=== PATIENT | male | born 1960 | race Caucasian/White ===

== ENCOUNTER 2019-11-06 14:22 | Outpatient (CLI) | payer BC, SELFPAY ==
[2019-11-06 15:12] LABS: Basophils # 0.1 10^3/uL (0.0-0.1); Basophils % 0.9 %; Eosinophils # 0.3 10^3/uL (0.0-0.8); Eosinophils % 4.4 %; Hematocrit 44.4 % (42.0-52.0); Hemoglobin 14.5 g/dL (11.7-16.6); Lymphocytes # 2.2 10^3/uL (0.8-4.8); Lymphocytes % 32.9 %; Mean Corpuscular HGB Conc 32.7 g/dL (30.0-36.0); Mean Corpuscular Hemoglobin 28.2 pg (28.0-34.0); Mean Corpuscular Volume 86.4 fL (80-94); Mean Platelet Volume 11.4 fL (7.4-10.4); Monocytes # 0.6 10^3/uL (0.2-0.9); Neutrophils # 3.5 10^3/uL (1.8-7.7); Neutrophils % 52.5 %; Nucleated Red Blood Cells % 0 %; Platelet Count 235 10^3/cmm (130-400); Red Blood Count 5.14 10^6/uL (4.1-5.3); Red Cell Distribution Width 13.2 % (12.1-15.1); White Blood Count 6.8 10^3/uL (4.0-10.0)
[2019-11-06 15:27] LABS: Alanine Aminotransferase 33 U/L (0-41); Albumin Level 4.2 g/dL (3.5-5.2); Alkaline Phosphatase 100 IU/L (40-130); Anion Gap 14.6 (5-19); Aspartate Amino Transferase 22 U/L (0-40); Blood Urea Nitrogen 24 mg/dL (6-20); Calcium 9.7 mg/dL (8.5-10.5); Carbon Dioxide 28 mmol/L (22-29); Chloride 103 mmol/L (98-107); Globulin 3.1 g/dL (1.3-4.6); Glomerular Filtration Rate 56.5 mL/min (90-130); Glucose 100 mg/dL (65-115); Lactate Dehydrogenase 150 U/L (135-225); Potassium 3.6 mmol/L (3.5-5.1); Sodium 142 mmol/L (136-145); Total Bilirubin 0.6 mg/dL (0.15-1.2); Total Protein 7.3 g/dL (6.6-8.7)
--- NOTE | 2019-11-09 10:11 | ONC FU_ITS ---
Dr. Gonzalez Patient Follow-Up Note Patient: Italo Barrios Unit #: [id number]: [id number] Dicatated By: Babatunde Gonzalez M.D.Date of Visit:Nov 06, 2019 Onc Med Follow-up/Prog Note Chief Complaint: Chronic lymphocytic leukemia/small lymphocytic lymphoma. History of Present Illness: This is a 58 year-old man with CLL/small lymphocytic lymphoma. He had associated bulky lymphadenopathy at initial diagnosis in August 2017. He first became ill in May 2017 while traveling in [place]. The illness started with a red area in the middle of his forehead, suspected to been from an insect bite. He then developed severe swelling of his eyes which progressed down to involve his neck area, and with that the lymph nodes in his neck swelled. He was treated at 2 different hospitals. He was initially treated with antibiotic, but with no improvement. He was then given a couple doses of steroid and antihistamine, which did help. When he returned home, he started oral steroid therapy, and it continued to gradually improve. He has now been off steroids for about 2 months. In the meantime, his lymph nodes had continued to progressively enlarge. He had further evaluation with CT of the neck and chest on 08/23/2017. This showed innumerable, extensive bilateral lymphadenopathy throughout the neck, supraclavicular, and axillary regions as well as the mediastinum. Also noted were multiple enhancing parotid gland masses. The chest scan also showed extensive adenopathy in the upper abdomen including large confluent lymph node masses in the mesentery and retroperitoneum. The largest is in the mesentery measuring 11.8 x 10 cm. The largest retroperitoneal lymph node mass in the left periaortic area measured 6.1 x 2.9 cm. The spleen was moderately enlarged measuring 14.5 cm in length by 15.7 cm anterior-posterior. He was referred to Dr. Freedman, and he underwent left inguinal lymph node biopsy on 08/28/2017. Pathology showed a monotypic B-cell population which was phenotypically compatible with CLL/SLL. The cells were positive for CD19, CD20, CD5, and CD23. They were negative for CD10 and FMC7. I had seen him initially on 09/07/2017. His further evaluation included bone marrow aspiration/biopsy on 09/22/2017. The marrow showed packed cellularity at 100% with complete effacement by a lymphoid proliferation. Flow cytometry showed a monotypic B-cell population comprising 80-85% of the total cellularity. The B cells were positive for CD19, CD20 (dim to moderate), CD5, CD23, and surface kappa light chain restriction (dim restriction). The B cells were negative for CD10 and for FMC7. 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 His IGHV was found to be non-mutated by PCR sequencing. His CT abdomen/pelvis on 10/09/2017 showed extensive retroperitoneal, mesenteric, and inguinal lymphadenopathy. A conglomerate mesenteric lymphadenopathy measured 7 x 17 x 14 cm and retroperitoneal lymphadenopathy measured 8.5 x 3.8 x 17 cm. There was also bulky pelvic sidewall lymphadenopathy bilaterally and the spleen was noted to be enlarged, measuring 16.7 cm. In September 2017 he began treatment with ibrutinib 420 mg daily. He initially reported some side effects including fatigue and dryness of the eyes with mattering. He had also become mildly anemic. The side effects, though, were tolerable, and he was able to continue treatment at the full dosage. He appeared to have a very good response with complete resolution of peripheral lymphadenopathy. His other medical illnesses include hypertension, hyperlipidemia, GERD, and gout. He is a nonsmoker. INTERIM HISTORY: In January 2018 his treatment was put on hold due to multiple side effects including worsening ocular symptoms, mouth sores, and a follicular skin eruption. All of this started after his treatment was transitioned from 3 140 mg capsules to a single 420 mg tablet. The symptoms improved, and he was then able to restart treatment at 280 mg daily. On 04/27/2018 he was admitted to the hospital after presenting to the emergency room with pain in the right side of his neck associated with pleuritic chest pain and shortness of breath. During the course of his evaluation emergency room, he was noted to have an elevated serum lipase at 738/383, consistent with mild pancreatitis. A CT angiogram of the chest, abdomen, and pelvis showed no evidence of pulmonary embolism. There was evidence of bilateral lower lobe and to a lesser extent upper lobe subsegmental atelectasis. There was significant decrease in the bulk of extensive adenopathy in the chest area and in the abdomen/pelvis. There was improvement in the previous splenomegaly. 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 His symptoms improved with conservative management and he continued treatment with ibrutinib 280 mg daily. On 11/05/2108 he was confirmed to have influenza A. At that point he had been symptomatic long enough that Tamiflu was not indicated, and he was just managed symptomatically. He had a gradual recovery following that illness. He was able to continue treatment with ibrutinib at 280 mg daily. He had recently come in with some new skin lesions on the lower scalp and posterior neck on the left side. He was treated empirically with doxycycline. He is seen for a scheduled visit. He has been feeling good generally. He has noted some improvement in the skin lesions with the doxycycline, but they are not completely resolved. He noted complete resolution of some other scattered on his scalp which had previously bothered him. He has had some pain in his right shoulder area and tingling in his right arm which started as he was getting off his tractor, and he thinks he may have pulled a muscle. The pain is better now, he still has some tingling. He has good energy and activity tolerance. ECOG score is 0. Appetite is good. He has no fever or night sweats. He has no shortness of breath or cough. He has had occasional muscle spasms in the rib area on both sides. Has occasional acid reflux. He has some slight rectal bleeding, which he notices on the toilet tissue but not in the stool. He has been voiding a little more frequently. He tends to feel creaky when he first gets up in the morning, but he has no other joint or bone pain. He has had no other focal neurologic symptoms. Medications: Allopurinol 1 (100 mg) Tablet Oral daily, Imbruvica 2 (140 mg) Capsule Oral daily, Lisinopril-Hydrochlorothiazide 1 Tablet (of 20-25 mg) Oral daily, Pravastatin Sodium 1 (40 mg) Tablet Oral daily, Protonix 1 (40 mg) Tablet, enteric coated Oral daily Allergies: Penicillins Review of Systems: Constitutional - He has good energy and activity tolerance. Appetite is good. His weight is up a couple pounds. He does not have fever or night sweats. ECOG score is 0, ENMT - His sinus drainage is better. No mouth sores. No sore throat or difficulty swallowing, Hematologic/Lymphatic - No abnormal bruising, Respiratory - No shortness of breath. No cough. No pleuritic pain or hemoptysis, Cardiovascular - No angina pain. No palpitations, Gastrointestinal - No nausea or vomiting. No heartburn or acid reflux. No diarrhea or constipation. He continues to have some slight rectal bleeding intermittently. He sees it on the toilet tissue but not in the stool, Genitourinary (M) - No dysuria or hematuria. He has been voiding a little more frequently. No urgency or incontinence, Musculoskeletal - He has had a few muscle spasms in the rib cage on both sides. He feels creaky when he first gets up in the morning. He has no other joint or bone pain, Integumentary - He continues to have a mild skin eruption in the area of the posterior scalp and neck on the left side, Neurologic - No headaches. No dizziness. He recently has had tingling in the right arm, Psychiatric - No anxiety or depression. No insomnia. Vital Signs: Performed on Nov 06, 2019 15:35 Height - 70.00 in Weight - 207.6 lbs (HIGH) BSA - 2.12 sq.m BMI - 29.79 Temperature - 97.2 F (LOW) Pulse - 70 /min Respiration - 18 /min BP - 150/99 mm(hg) (HIGH) O2 Sat - 96 % Pain - 0 Physical Examination: Constitutional - He looks good generally, Eyes - Sclerae nonicteric. Conjunctivae clear, ENMT - There are no lesions noted in the oral cavity, Hematologic/Lymphatic - There is no cervical, clavicular, or axillary adenopathy noted, Respiratory - Lungs are clear with good air movement bilaterally, Cardiovascular - Heart rhythm is regular. There is no murmur, gallop, or rub noted, Abdomen - Soft. Liver and spleen are not enlarged. There is no abdominal mass or ascites noted. There is no inguinal adenopathy noted, Extremities - No edema, Integumentary - There is a residual cluster of skin lesions involving the posterior neck area and low occipital scalp area on the left side. They are slightly raised, erythematous, inflammatory appearing lesions. The overall appearance has improved. Several of the skin lesions on his scalp have resolved, Neurologic - No focal neurologic deficits noted. Lab/Imaging: Test performed on Nov 06, 2019 14:33 LDH (Total) 150 U/L Sodium 142 mmol/L Potassium 3.6 mmol/L Chloride 103 mmol/L CO2 28 mmol/L Anion Gap 14.6 BUN 24 mg/dL Creatinine 1.3 mg/dL Cr Clearance (Est) 81.49 mL/min eGFR 56.5 mL/min Glucose 100 mg/dL Calcium 9.7 mg/dL Protein, Total 7.3 g/dL Albumin 4.2 g/dL Globulin 3.1 g/dL Bilirubin, Total 0.6 mg/dL ALT (SGPT) 33 U/L AST (SGOT) 22 U/L Alkaline Phosphatase 100 IU/L WBC 6.8 10 3/uL RBC 5.14 10 6/uL HGB 14.5 g/dL HCT 44.4 % MCV 86.4 fL MCH 28.2 pg MCHC 32.7 g/dL RDW 13.2 % Platelet Count 235 10 3/cmm MPV 11.4 fL Neutrophils 3.5 10 3/uL Lymphocytes 2.2 10 3/uL Monocytes 0.6 10 3/uL Eosinophils 0.3 10 3/uL Basophils 0.1 10 3/uL Neutrophil % 52.5 % Lymphocyte % 32.9 % Monocyte % 9.0 % Eosinophil % 4.4 % Basophils % 0.9 % Impression: 1. Patient with chronic lymphocytic leukemia/small lymphocytic lymphoma. He has Greer stage II disease, but with extensive, bulky lymphadenopathy. 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 His IGHV was found to be nonmutated by PCR sequencing. 2. He had presented with significant orbital edema associated with an erythematous skin lesion/wound in the mid forehead region. The exact cause of this remains uncertain. It did improve with steroid therapy. His other medical illnesses include: 3. Hypertension. 4. Hyperlipidemia. 5. GERD. 6. Gout. 7. He has a history of colonic polyps. He had negative surveillance colonoscopy in 2016. In September 2017 he began treatment with ibrutinib 420 mg daily. He has had some mild fatigue with it, and he also had ocular symptoms including dry eyes and mattering. He initally was mildly anemic. However, did appear to be tolerating it with acceptable toxicity, and he does appeared to be showing a very good clinical response. His treatment, though, was stopped in January 2018 after he developed multiple mouth sores, worsening of his ocular symptoms, and the follicular skin eruption. Those symptoms subsequently improved, and he was then able to restart treatment with the dosage reduced to 280 mg daily. On 04/27/2018 he was admitted to the hospital with pain in the right side of his neck associated with pleuritic chest pain and shortness of breath. He was noted to have an elevated serum lipase, consistent with mild pancreatitis. His CT scan showed no evidence of pulmonary embolism or other acute pathology. There was significant improvement in the lymphadenopathy in the chest area and in the abdomen/pelvis. He also was noted to have a slight increase in an appendiceal mucocele compared to the CT scan from September. He had an uneventful recovery and he was able to continue treatment with ibrutinib at 280 mg daily. On 11/05/2018 he was confirmed to have influenza A. Due to duration of symptoms he was not treated with Tamiflu. He had gradual recovery from that illness, and he was able to continue treatment with ibrutinib. During subsequent follow-up he required treatment for a periungual infection of the right great toe, and he also developed some inflammatory appearing skin lesions in the left side of the neck and scalp. He has had a few minor musculoskeletal issues. Overall, though, he has been doing well clinically with no evidence of progression of the chronic lymphocytic leukemia. Plan: He continues ibrutinib 280 mg daily. I am going to give him an additional 14 days of treatment with doxycycline. He will have a repeat CBC in 3 months. I will see him again in 6 months, or sooner as needed. Signed By: Babatunde Gonzalez M.D. <<Signature on File>>
== END 2019-11-06 14:23 | disposition home or self-care (01) ==
LOC: ONCMED 14:28
PROVIDERS: Family Provider Nurse Practitioner Family; PCP Nurse Practitioner Family; Visit Provider Internal Medicine Medical Oncology
DX: C91.10 Chronic lymphocytic leukemia of B-cell type not having achieved remission (principal); I10 Essential (primary) hypertension; E78.5 Hyperlipidemia, unspecified; K21.9 Gastro-esophageal reflux disease without esophagitis; M10.9 Gout, unspecified; Z79.899 Other long term (current) drug therapy; Z86.010 Personal history of colon polyps
CPT/HCPCS: 36415; 80053; 83615; 85025; 99214

== ENCOUNTER → 2020-02-06 11:03 | Outpatient (BNVA) | payer BC, SELFPAY | PROVIDERS: Family Provider Nurse Practitioner Family; PCP Nurse Practitioner Family; Visit Provider Internal Medicine Medical Oncology | DX: C83.08 Small cell B-cell lymphoma, lymph nodes of multiple sites (principal) | CPT/HCPCS: 85025 ==

== ENCOUNTER → 2020-06-22 11:00 | Outpatient (BNVA) | payer BC, SELFPAY | PROVIDERS: Family Provider Nurse Practitioner Family; PCP Nurse Practitioner Family; Visit Provider Internal Medicine Medical Oncology | DX: C83.08 Small cell B-cell lymphoma, lymph nodes of multiple sites (principal) | CPT/HCPCS: 85025 ==

== ENCOUNTER 2020-06-23 10:03 | Outpatient (CLI) | payer BC, SELFPAY ==
--- NOTE | 2020-06-27 14:27 | ONC FU_ITS ---
Dr. Gonzalez Patient Follow-Up Note Patient: Italo Barrios Unit #: [id number]: 1960 Dicatated By: Babatunde Gonzalez M.D.Date of Visit:Jun 23, 2020 Onc Med Follow-up/Prog Note Chief Complaint: Chronic lymphocytic leukemia/small lymphocytic lymphoma. History of Present Illness: This is a 59 year-old man with CLL/small lymphocytic lymphoma. He had associated bulky lymphadenopathy at initial diagnosis in August 2017. He first became ill in May 2017 while traveling in [place]. The illness started with a red area in the middle of his forehead, suspected to been from an insect bite. He then developed severe swelling of his eyes which progressed down to involve his neck area, and with that the lymph nodes in his neck swelled. He was treated at 2 different hospitals. He was initially treated with antibiotic, but with no improvement. He was then given a couple doses of steroid and antihistamine, which did help. When he returned home, he started oral steroid therapy, and it continued to gradually improve. He has now been off steroids for about 2 months. In the meantime, his lymph nodes had continued to progressively enlarge. He had further evaluation with CT of the neck and chest on 08/23/2017. This showed innumerable, extensive bilateral lymphadenopathy throughout the neck, supraclavicular, and axillary regions as well as the mediastinum. Also noted were multiple enhancing parotid gland masses. The chest scan also showed extensive adenopathy in the upper abdomen including large confluent lymph node masses in the mesentery and retroperitoneum. The largest is in the mesentery measuring 11.8 x 10 cm. The largest retroperitoneal lymph node mass in the left periaortic area measured 6.1 x 2.9 cm. The spleen was moderately enlarged measuring 14.5 cm in length by 15.7 cm anterior-posterior. He was referred to Dr. Freedman, and he underwent left inguinal lymph node biopsy on 08/28/2017. Pathology showed a monotypic B-cell population which was phenotypically compatible with CLL/SLL. The cells were positive for CD19, CD20, CD5, and CD23. They were negative for CD10 and FMC7. I had seen him initially on 09/07/2017. His further evaluation included bone marrow aspiration/biopsy on 09/22/2017. The marrow showed packed cellularity at 100% with complete effacement by a lymphoid proliferation. Flow cytometry showed a monotypic B-cell population comprising 80-85% of the total cellularity. The B cells were positive for CD19, CD20 (dim to moderate), CD5, CD23, and surface kappa light chain restriction (dim restriction). The B cells were negative for CD10 and for FMC7. 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 His IGHV was found to be non-mutated by PCR sequencing. His CT abdomen/pelvis on 10/09/2017 showed extensive retroperitoneal, mesenteric, and inguinal lymphadenopathy. A conglomerate mesenteric lymphadenopathy measured 7 x 17 x 14 cm and retroperitoneal lymphadenopathy measured 8.5 x 3.8 x 17 cm. There was also bulky pelvic sidewall lymphadenopathy bilaterally and the spleen was noted to be enlarged, measuring 16.7 cm. In September 2017 he began treatment with ibrutinib 420 mg daily. He initially reported some side effects including fatigue and dryness of the eyes with mattering. He had also become mildly anemic. The side effects, though, were tolerable, and he was able to continue treatment at the full dosage. He appeared to have a very good response with complete resolution of peripheral lymphadenopathy. His other medical illnesses include hypertension, hyperlipidemia, GERD, and gout. He is a nonsmoker. INTERIM HISTORY: In January 2018 his treatment was put on hold due to multiple side effects including worsening ocular symptoms, mouth sores, and a follicular skin eruption. All of this started after his treatment was transitioned from 3 140 mg capsules to a single 420 mg tablet. The symptoms improved, and he was then able to restart treatment at 280 mg daily. On 04/27/2018 he was admitted to the hospital after presenting to the emergency room with pain in the right side of his neck associated with pleuritic chest pain and shortness of breath. During the course of his evaluation emergency room, he was noted to have an elevated serum lipase at 738/383, consistent with mild pancreatitis. A CT angiogram of the chest, abdomen, and pelvis showed no evidence of pulmonary embolism. There was evidence of bilateral lower lobe and to a lesser extent upper lobe subsegmental atelectasis. There was significant decrease in the bulk of extensive adenopathy in the chest area and in the abdomen/pelvis. There was improvement in the previous splenomegaly. 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 His symptoms improved with conservative management and he continued treatment with ibrutinib 280 mg daily. On 11/05/2108 he was confirmed to have influenza A. At that point he had been symptomatic long enough that Tamiflu was not indicated, and he was just managed symptomatically. He had a gradual recovery following that illness. He was able to continue treatment with ibrutinib at 280 mg daily. He had then presented with some new skin lesions on the lower scalp and posterior neck on the left side. The lesions resolved gradually on empirically treatment with doxycycline . He is seen for a scheduled visit. He has been feeling good generally. His energy is pretty good. He has normal activity. Appetite also is good. He has not had fever in the has not recently had any night sweating. He does complain that he is been having aching in his arms, significant enough that it has caused him to have difficulty sleeping. He also has had some back pain, but that he attributes to overworking. He coughs to clear his throat, but he has been doing that for years. He does not complain of shortness of breath or chest pain. His acid reflux is adequately managed with medication. His bowel function remains adequate, though he has been aware of some change in his bowel habit. He has no complaints. He does not complain of headache or dizziness, and he has no focal neurologic symptoms. He does bruise easily, but he has had no other bleeding manifestations. Medications: Acetaminophen 2 Tablet (of 500 mg) Oral at bedtime PRN, Allopurinol 1 (100 mg) Tablet Oral daily, Imbruvica 2 (140 mg) Capsule Oral daily, Lisinopril-Hydrochlorothiazide 1 Tablet (of 20-25 mg) Oral daily, Pravastatin Sodium 1 (40 mg) Tablet Oral daily, Protonix 1 (40 mg) Tablet, enteric coated Oral daily Allergies: Penicillins Review of Systems: Constitutional - His energy is good. He has normal activity without restrictions. His appetite is good. His weight is down about 9 pounds from last visit. No fevers or night sweats. He has hot flashes. ECOG score is 0, ENMT - No sinus congestion/drainage. No mouth sores. No sore throat or difficulty swallowing, Hematologic/Lymphatic - He bruises easily, Respiratory - No shortness of breath. He has a cough. No pleuritic pain or hemoptysis, Cardiovascular - No angina pain. No palpitations, Gastrointestinal - No nausea or vomiting. He is taking pantoprazole nightly for heartburn. No diarrhea or constipation. No blood in the stool or black stools, Genitourinary (M) - No dysuria or hematuria. No urinary frequency. No urgency or incontinence, Musculoskeletal - He has soreness in his arms, described as an aching pain, Integumentary - No skin complications, Neurologic - No headache or dizziness. No numbness or tingling. No other focal neurologic symptoms, Psychiatric - No anxiety or depression. He is not sleeping well. Vital Signs: Performed on Jun 23, 2020 10:36 Height - 70.00 in Weight - 199.2 lbs (LOW) BSA - 2.08 sq.m BMI - 28.58 Temperature - 97.2 F (LOW) Pulse - 73 /min Respiration - 20 /min BP - 162/90 mm(hg) (HIGH) O2 Sat - 97 % Pain - 4 Physical Examination: Constitutional - He looks good generally, Eyes - Sclerae nonicteric. Conjunctivae clear, ENMT - There are no lesions noted in the oral cavity, Hematologic/Lymphatic - There is no cervical, clavicular, or axillary adenopathy noted, Respiratory - Lungs are clear with good air movement bilaterally, Cardiovascular - Heart rhythm is regular. There is no murmur, gallop, or rub noted, Abdomen - Soft. Liver and spleen are not enlarged. There is no abdominal mass or ascites noted. There is no inguinal adenopathy noted, Extremities - No edema, Neurologic - No focal neurologic deficits noted. Lab/Imaging: CBC shows hemoglobin 13.8 g, white blood cell count 6100, and platelet count 223,000. Impression: 1. Patient with chronic lymphocytic leukemia/small lymphocytic lymphoma. He has Greer stage II disease, but with extensive, bulky lymphadenopathy. 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 His IGHV was found to be nonmutated by PCR sequencing. 2. He had presented with significant orbital edema associated with an erythematous skin lesion/wound in the mid forehead region. The exact cause of this remains uncertain. It did improve with steroid therapy. His other medical illnesses include: 3. Hypertension. 4. Hyperlipidemia. 5. GERD. 6. Gout. 7. He has a history of colonic polyps. He had negative surveillance colonoscopy in 2015. In September 2017 he began treatment with ibrutinib 420 mg daily. He has had some mild fatigue with it, and he also had ocular symptoms including dry eyes and mattering. He initally was mildly anemic. However, did appear to be tolerating it with acceptable toxicity, and he does appeared to be showing a very good clinical response. His treatment, though, was stopped in January 2018 after he developed multiple mouth sores, worsening of his ocular symptoms, and the follicular skin eruption. Those symptoms subsequently improved, and he was then able to restart treatment with the dosage reduced to 280 mg daily. On 04/27/2018 he was admitted to the hospital with pain in the right side of his neck associated with pleuritic chest pain and shortness of breath. He was noted to have an elevated serum lipase, consistent with mild pancreatitis. His CT scan showed no evidence of pulmonary embolism or other acute pathology. There was significant improvement in the lymphadenopathy in the chest area and in the abdomen/pelvis. He also was noted to have a slight increase in an appendiceal mucocele compared to the CT scan from September. He had an uneventful recovery and he was able to continue treatment with ibrutinib at 280 mg daily. On 11/05/2018 he was confirmed to have influenza A. Due to duration of symptoms he was not treated with Tamiflu. He had gradual recovery from that illness, and he was able to continue treatment with ibrutinib. During subsequent follow-up he required treatment for a periungual infection of the right great toe, and he also developed some inflammatory appearing skin lesions in the left side of the neck and scalp. Those did show gradual resolution on empiric antibiotic coverage with doxycycline. He has since then continued ibrutinib at 280 mg daily. During follow-up there has been no obvious progression of the CLL/small lymphocytic lymphoma by clinical evaluation. Recently he has been having more muscle aching, which I suspect is due to the ibrutinib. He has otherwise been tolerating it well at the reduced dosage. Plan: At least for now he will continue ibrutinib 280 mg daily. He will take Aleve at bedtime, as needed, but he is to keep an eye on his blood pressure and he also is to let me know if his musculoskeletal symptoms are worsening. His lab studies will be rechecked in 3 months, and I will otherwise just plan to see him again in 6 months. Signed By: Babatunde Gonzalez M.D. <<Signature on File>>
== END 2020-06-23 10:04 | disposition home or self-care (01) ==
LOC: ONCMED 10:06
PROVIDERS: PCP Nurse Practitioner Family; Visit Provider Internal Medicine Medical Oncology
DX: C91.10 Chronic lymphocytic leukemia of B-cell type not having achieved remission (principal); I10 Essential (primary) hypertension; E78.5 Hyperlipidemia, unspecified; K21.9 Gastro-esophageal reflux disease without esophagitis; M10.9 Gout, unspecified; Z86.010 Personal history of colon polyps; Z79.899 Other long term (current) drug therapy
CPT/HCPCS: 99214

== ENCOUNTER → 2020-10-05 08:34 | Outpatient (BNVA) | payer BC, SELFPAY | PROVIDERS: PCP Nurse Practitioner Family; Visit Provider Internal Medicine Medical Oncology | DX: C83.08 Small cell B-cell lymphoma, lymph nodes of multiple sites (principal); I10 Essential (primary) hypertension; E78.2 Mixed hyperlipidemia; D63.0 Anemia in neoplastic disease; C91.10 Chronic lymphocytic leukemia of B-cell type not having achieved remission | CPT/HCPCS: 80053; 80061; 83615; 85025 ==

== ENCOUNTER → 2021-02-24 08:51 | Outpatient (BNVA) | payer BC, SELFPAY | PROVIDERS: PCP Nurse Practitioner Family; Visit Provider Internal Medicine Medical Oncology | DX: C83.08 Small cell B-cell lymphoma, lymph nodes of multiple sites (principal); C91.10 Chronic lymphocytic leukemia of B-cell type not having achieved remission; D63.0 Anemia in neoplastic disease | CPT/HCPCS: 80053; 83615; 85025 ==

== ENCOUNTER 2021-02-26 09:27 | Outpatient (CLI) | payer BC, SELFPAY ==
--- NOTE | 2021-02-26 15:23 | ONC FU_ITS ---
Dr. Gonzalez Patient Follow-Up Note Patient: Italo Barrios Unit #: [id number]: [id number] Dicatated By: Babatunde Gonzalez M.D.Date of Visit:Feb 26, 2021 Onc Med Follow-up/Prog Note Chief Complaint: Chronic lymphocytic leukemia/small lymphocytic lymphoma. History of Present Illness: This is a 60 year-old man with CLL/small lymphocytic lymphoma. He had associated bulky lymphadenopathy at initial diagnosis in August 2017. He first became ill in May 2017 while traveling in [place]. The illness started with a red area in the middle of his forehead, suspected to been from an insect bite. He then developed severe swelling of his eyes which progressed down to involve his neck area, and with that the lymph nodes in his neck swelled. He was treated at 2 different hospitals. He was initially treated with antibiotic, but with no improvement. He was then given a couple doses of steroid and antihistamine, which did help. When he returned home, he started oral steroid therapy, and it continued to gradually improve. He has now been off steroids for about 2 months. In the meantime, his lymph nodes had continued to progressively enlarge. He had further evaluation with CT of the neck and chest on 08/23/2017. This showed innumerable, extensive bilateral lymphadenopathy throughout the neck, supraclavicular, and axillary regions as well as the mediastinum. Also noted were multiple enhancing parotid gland masses. The chest scan also showed extensive adenopathy in the upper abdomen including large confluent lymph node masses in the mesentery and retroperitoneum. The largest is in the mesentery measuring 11.8 x 10 cm. The largest retroperitoneal lymph node mass in the left periaortic area measured 6.1 x 2.9 cm. The spleen was moderately enlarged measuring 14.5 cm in length by 15.7 cm anterior-posterior. He was referred to Dr. Freedman, and he underwent left inguinal lymph node biopsy on 08/28/2017. Pathology showed a monotypic B-cell population which was phenotypically compatible with CLL/SLL. The cells were positive for CD19, CD20, CD5, and CD23. They were negative for CD10 and FMC7. I had seen him initially on 09/07/2017. His further evaluation included bone marrow aspiration/biopsy on 09/22/2017. The marrow showed packed cellularity at 100% with complete effacement by a lymphoid proliferation. Flow cytometry showed a monotypic B-cell population comprising 80-85% of the total cellularity. The B cells were positive for CD19, CD20 (dim to moderate), CD5, CD23, and surface kappa light chain restriction (dim restriction). The B cells were negative for CD10 and for FMC7. 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 His IGHV was found to be non-mutated by PCR sequencing. His CT abdomen/pelvis on 10/09/2017 showed extensive retroperitoneal, mesenteric, and inguinal lymphadenopathy. A conglomerate mesenteric lymphadenopathy measured 7 x 17 x 14 cm and retroperitoneal lymphadenopathy measured 8.5 x 3.8 x 17 cm. There was also bulky pelvic sidewall lymphadenopathy bilaterally and the spleen was noted to be enlarged, measuring 16.7 cm. In September 2017 he began treatment with ibrutinib 420 mg daily. He initially reported some side effects including fatigue and dryness of the eyes with mattering. He had also become mildly anemic. The side effects, though, were tolerable, and he was able to continue treatment at the full dosage. He appeared to have a very good response with complete resolution of peripheral lymphadenopathy. In January 2018 his treatment was put on hold due to multiple side effects including worsening ocular symptoms, mouth sores, and a follicular skin eruption. All of this started after his treatment was transitioned from 3 140 mg capsules to a single 420 mg tablet. The symptoms improved, and he was then able to restart treatment at 280 mg daily. On 04/27/2018 he was admitted to the hospital after presenting to the emergency room with pain in the right side of his neck associated with pleuritic chest pain and shortness of breath. During the course of his evaluation emergency room, he was noted to have an elevated serum lipase at 738/383, consistent with mild pancreatitis. A CT angiogram of the chest, abdomen, and pelvis showed no evidence of pulmonary embolism. There was evidence of bilateral lower lobe and to a lesser extent upper lobe subsegmental atelectasis. There was significant decrease in the bulk of extensive adenopathy in the chest area and in the abdomen/pelvis. There was improvement in the previous splenomegaly. 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 His symptoms improved with conservative management and he continued treatment with ibrutinib 280 mg daily. In October 2018 he was confirmed to have influenza A. At that point he had been symptomatic long enough that Tamiflu was not indicated, and he was just managed symptomatically. He had a gradual recovery following that illness. He was able to continue treatment with ibrutinib at 280 mg daily. He had then presented with some new skin lesions on the lower scalp and posterior neck on the left side. The lesions resolved gradually on empiric treatment with doxycycline. His other medical illnesses include hypertension, hyperlipidemia, GERD, and gout. He is a nonsmoker. INTERIM HISTORY: He is seen for a scheduled visit. He has been feeling pretty good generally. He has some fatigue, but his energy overall has been better. He has normal activity. ECOG score is 0. He has good appetite. He has had weight loss, some of which he attributes to being more active, but some also due to stress. He says he had gotten down to as low as 180 pounds. He is now back up to 190 pounds by his scale at home. He does not have fever or night sweats. He has noticed a little difficulty in focusing mentally and in his concentration/cognitive function. He has had a little tightness in his neck and throat area. He does not have difficulty swallowing. He has his usual cough. He does not complain of shortness of breath or chest pain. He currently has no GI or complaints. He has some pain in the area where he leans on his left forearm. He has no other joint or bone pain. He does not complain of headache or dizziness, and he has no focal neurologic symptoms. He does tend to bleed somewhat easily from cuts. Medications: Acetaminophen 2 Tablet (of 500 mg) Oral at bedtime PRN, Allopurinol 1 (100 mg) Tablet Oral daily, Imbruvica 2 (140 mg) Capsule Oral daily, Lisinopril-Hydrochlorothiazide 1 Tablet (of 20-25 mg) Oral daily, Pravastatin Sodium 1 (40 mg) Tablet Oral daily, Protonix 1 (40 mg) Tablet, enteric coated Oral daily Allergies: Penicillins Vital Signs: Performed on Feb 26, 2021 10:02 Height - 70.00 in Weight - 194.2 lbs (LOW) BSA - 2.06 sq.m BMI - 27.86 Temperature - 96.8 F (LOW) Pulse - 73 /min Respiration - 18 /min BP - 168/94 mm(hg) (HIGH) O2 Sat - 97 % Pain - 0 Fatigue - 6 Physical Examination: Constitutional - He looks good generally, Eyes - Sclerae nonicteric. Conjunctivae clear, ENMT - There are no lesions noted in the oral cavity, Neck - There is no mass or thyromegaly noted. He has slightly prominent submandibular glands bilaterally versus small submandibular lymph nodes, Hematologic/Lymphatic - There is no other cervical and no clavicular or axillary adenopathy noted, Respiratory - Lungs are clear with good air movement bilaterally, Cardiovascular - Heart rhythm is regular. There is no murmur, gallop, or rub noted, Abdomen - Soft. Liver and spleen are not enlarged. There is no abdominal mass or ascites noted. There is no inguinal adenopathy noted, Extremities - No edema. Pedal pulses are palpable bilaterally, Neurologic - No focal neurologic deficits noted. Lab/Imaging: CBC shows hemoglobin 13.9 g, white blood cell count 6100, and platelet count 179,000. The differential shows 50% granulocytes, 34% lymphocytes, and 7% monocytes. Comprehensive metabolic profile shows stable renal function with BUN 17 and creatinine 1.1 mg/dL. Bilirubin and liver enzymes are normal. LDH is normal at 148 U/L. Problem List: 1. Chronic lymphocytic leukemia/small lymphocytic lymphoma. He had Greer stage II disease, but with extensive, bulky lymphadenopathy. 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 His IGHV was found to be nonmutated by PCR sequencing. 2. Hypertension. 3. Hyperlipidemia. 4. GERD. 5. Gout. 6. He has a history of colonic polyps. He had one polyp on his surveillance colonoscopy in 2020. 7. In April 2018 he was admitted to the hospital with mild pancreatitis. Problems Addressed with this Encounter and Plan: 1. Patient with chronic lymphocytic leukemia/small lymphocytic lymphoma. He had Greer stage II disease, but with extensive, bulky lymphadenopathy at initial diagnosis in August 2017. 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 His IGHV was found to be nonmutated by PCR sequencing. In September 2017 he began treatment with ibrutinib 420 mg daily. He had some mild fatigue with it, and he also had ocular symptoms including dry eyes and mattering. He initally was mildly anemic. However, he did have a very good clinical response. His treatment, though, was stopped in January 2018 after he developed multiple mouth sores, worsening of his ocular symptoms, and the follicular skin eruption. Those symptoms subsequently improved, and he was then able to restart treatment with the dosage reduced to 280 mg daily. He has since then been tolerating treatment with acceptable toxicity, thus far with no evidence of recurrence/progression of the chronic lymphocytic leukemia. Since his last visit he has developed some mild cognitive symptoms, which may be treatment related. Overall, he appears to be doing well clinically. He continues ibrutinib at 280 mg daily. He will have repeat CBC in 3 months and a follow-up visit in 6 months. 2. He has hypertension his blood pressure is significantly elevated. I asked him to check it at home at least once or twice a week. If it remains elevated, he will need to have his hypertensive medication adjusted. Signed By: Babatunde Gonzalez M.D. <<Signature on File>>
== END 2021-02-26 09:28 | disposition home or self-care (01) ==
LOC: ONCMED 09:29
PROVIDERS: PCP Nurse Practitioner Family; Visit Provider Internal Medicine Medical Oncology
DX: I10 Essential (primary) hypertension; E78.5 Hyperlipidemia, unspecified; K21.9 Gastro-esophageal reflux disease without esophagitis; M10.9 Gout, unspecified; Z86.010 Personal history of colon polyps; Z79.899 Other long term (current) drug therapy; C91.10 Chronic lymphocytic leukemia of B-cell type not having achieved remission
CPT/HCPCS: 99214

== ENCOUNTER → 2021-06-01 12:09 | Outpatient (BNVA) | payer BC, SELFPAY | PROVIDERS: PCP Nurse Practitioner Family; Visit Provider Internal Medicine Medical Oncology | DX: C91.10 Chronic lymphocytic leukemia of B-cell type not having achieved remission (principal) | CPT/HCPCS: 85025 ==

== ENCOUNTER 2021-08-31 12:08 | Outpatient (CLI) | payer BC, SELFPAY ==
[2021-08-31 12:45] LABS: Basophils # 0.1 10^3/uL (0.0-0.1); Basophils % 0.9 %; Eosinophils # 0.2 10^3/uL (0.0-0.8); Eosinophils % 3.6 %; Hematocrit 44.1 % (42.0-52.0); Hemoglobin 14.6 g/dL (11.7-16.6); Lymphocytes % 33.8 %; Mean Corpuscular HGB Conc 33.1 g/dL (30.0-36.0); Mean Corpuscular Hemoglobin 28.7 pg (28.0-34.0); Mean Corpuscular Volume 86.6 fl (80-94); Mean Platelet Volume 10.7 fL (7.4-10.4); Monocytes # 0.5 10^3/uL (0.2-0.9); Monocytes % 8.2 %; Neutrophils # 3.09 10^3/uL (1.8-7.7); Neutrophils % 53.2 %; Nucleated Red Blood Cells % 0 %; Platelet Count 185 10^3/cmm (130-400); Red Blood Count 5.09 10^6/uL (4.1-5.3); Red Cell Distribution Width 12.8 % (12.1-15.1); White Blood Count 5.8 10^3/uL (4.0-10.0)
[2021-08-31 13:00] LABS: Alanine Aminotransferase 27 U/L (0-41); Albumin Level 4.5 g/dL (3.5-5.2); Alkaline Phosphatase 93 IU/L (40-130); Anion Gap 16.8 (5-19); Aspartate Amino Transferase 25 U/L (0-40); Blood Urea Nitrogen 14 mg/dL (8-23); Carbon Dioxide 26 mmol/L (22-29); Chloride 101 mmol/L (98-107); Globulin 2.4 g/dL (1.3-4.6); Glomerular Filtration Rate 68.3 mL/min (90-130); Glucose 97 mg/dL (65-115); Lactate Dehydrogenase 166 U/L (135-225); Osmolality Calculated 290 mOsm/kg (285-295); Potassium 3.8 mmol/L (3.5-5.1); Sodium 140 mmol/L (136-145); Total Bilirubin 0.6 mg/dL (0.15-1.2); Total Protein 6.9 g/dL (6.6-8.7)
== END 2021-08-31 12:09 | disposition home or self-care (01) ==
LOC: ONCMED 12:10
PROVIDERS: PCP Nurse Practitioner Family; Visit Provider Internal Medicine Medical Oncology
DX: C91.10 Chronic lymphocytic leukemia of B-cell type not having achieved remission (principal)
CPT/HCPCS: 36415; 80053; 83615; 85025

== ENCOUNTER 2021-09-01 06:33 | Outpatient (CLI) | payer BC, SELFPAY ==
[2021-09-02 18:21] LABS: Thyroid Stimulating Hormone 1.93 uIU/mL (0.27-4.20); Vitamin B12 352 pg/mL (232-1245)
--- NOTE | 2021-09-04 13:04 | ONC FU_ITS ---
Dr. Gonzalez Patient Follow-Up Note Patient: Italo Barrios Unit #: [id number]: [id number] Dicatated By: Babatunde Gonzalez M.D.Date of Visit:Sep 01, 2021 Onc Med Follow-up/Prog Note Chief Complaint: Chronic lymphocytic leukemia/small lymphocytic lymphoma. History of Present Illness: This is a 60 year-old man with CLL/small lymphocytic lymphoma. He had associated bulky lymphadenopathy at initial diagnosis in August 2017. He first became ill in May 2017 while traveling in [place]. The illness started with a red area in the middle of his forehead, suspected to been from an insect bite. He then developed severe swelling of his eyes which progressed down to involve his neck area, and with that the lymph nodes in his neck swelled. He was treated at 2 different hospitals. He was initially treated with antibiotic, but with no improvement. He was then given a couple doses of steroid and antihistamine, which did help. When he returned home, he started oral steroid therapy, and it continued to gradually improve. He has now been off steroids for about 2 months. In the meantime, his lymph nodes had continued to progressively enlarge. He had further evaluation with CT of the neck and chest on 08/23/2017. This showed innumerable, extensive bilateral lymphadenopathy throughout the neck, supraclavicular, and axillary regions as well as the mediastinum. Also noted were multiple enhancing parotid gland masses. The chest scan also showed extensive adenopathy in the upper abdomen including large confluent lymph node masses in the mesentery and retroperitoneum. The largest is in the mesentery measuring 11.8 x 10 cm. The largest retroperitoneal lymph node mass in the left periaortic area measured 6.1 x 2.9 cm. The spleen was moderately enlarged measuring 14.5 cm in length by 15.7 cm anterior-posterior. He was referred to Dr. Freedman, and he underwent left inguinal lymph node biopsy on 08/28/2017. Pathology showed a monotypic B-cell population which was phenotypically compatible with CLL/SLL. The cells were positive for CD19, CD20, CD5, and CD23. They were negative for CD10 and FMC7. I had seen him initially on 09/07/2017. His further evaluation included bone marrow aspiration/biopsy on 09/22/2017. The marrow showed packed cellularity at 100% with complete effacement by a lymphoid proliferation. Flow cytometry showed a monotypic B-cell population comprising 80-85% of the total cellularity. The B cells were positive for CD19, CD20 (dim to moderate), CD5, CD23, and surface kappa light chain restriction (dim restriction). The B cells were negative for CD10 and for FMC7. 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 His IGHV was found to be non-mutated by PCR sequencing. His CT abdomen/pelvis on 10/09/2017 showed extensive retroperitoneal, mesenteric, and inguinal lymphadenopathy. A conglomerate mesenteric lymphadenopathy measured 7 x 17 x 14 cm and retroperitoneal lymphadenopathy measured 8.5 x 3.8 x 17 cm. There was also bulky pelvic sidewall lymphadenopathy bilaterally and the spleen was noted to be enlarged, measuring 16.7 cm. In September 2017 he began treatment with ibrutinib 420 mg daily. He initially reported some side effects including fatigue and dryness of the eyes with mattering. He had also become mildly anemic. The side effects, though, were tolerable, and he was able to continue treatment at the full dosage. He appeared to have a very good response with complete resolution of peripheral lymphadenopathy. In January 2018 his treatment was put on hold due to multiple side effects including worsening ocular symptoms, mouth sores, and a follicular skin eruption. All of this started after his treatment was transitioned from 3 140 mg capsules to a single 420 mg tablet. The symptoms improved, and he was then able to restart treatment at 280 mg daily. On 04/27/2018 he was admitted to the hospital after presenting to the emergency room with pain in the right side of his neck associated with pleuritic chest pain and shortness of breath. During the course of his evaluation emergency room, he was noted to have an elevated serum lipase at 738/383, consistent with mild pancreatitis. A CT angiogram of the chest, abdomen, and pelvis showed no evidence of pulmonary embolism. There was evidence of bilateral lower lobe and to a lesser extent upper lobe subsegmental atelectasis. There was significant decrease in the bulk of extensive adenopathy in the chest area and in the abdomen/pelvis. There was improvement in the previous splenomegaly. 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 His symptoms improved with conservative management and he continued treatment with ibrutinib 280 mg daily. In October 2018 he was confirmed to have influenza A. At that point he had been symptomatic long enough that Tamiflu was not indicated, and he was just managed symptomatically. He had a gradual recovery following that illness. He was able to continue treatment with ibrutinib at 280 mg daily. He had then presented with some new skin lesions on the lower scalp and posterior neck on the left side. The lesions resolved gradually on empiric treatment with doxycycline. He continued ibrutinib 280 mg daily. His other medical illnesses include hypertension, hyperlipidemia, GERD, and gout. He is a nonsmoker. INTERIM HISTORY: He is seen for a scheduled visit. He has been feeling pretty good generally, though he does complain that he has been having brain fog , including difficulty with memory and with concentration. He also has a spot on the left side of his back that has been itching intermittently. He thinks it may be coming from the inside. He says that periodically he has had a pulled muscle in the same spot. He still has good energy and activity tolerance but ECOG score is 0. Appetite also is good. He has no fever or night sweats. He has not had sore mouth or throat. He has chronic cough, attributable to sinus drainage. He does not complain of shortness of breath or chest pain. He has no GI or complaints. He has no other joint or bone pain. He does not complain of headache or dizziness, and he has no focal neurologic symptoms. He does have easy bruising on the ibrutinib. Medications: Acetaminophen 2 Tablet (of 500 mg) Oral at bedtime PRN, Allopurinol 1 (100 mg) Tablet Oral daily, Imbruvica 2 (140 mg) Capsule Oral daily, Lisinopril-Hydrochlorothiazide 1 Tablet (of 20-25 mg) Oral daily, Pravastatin Sodium 1 (40 mg) Tablet Oral daily, Protonix 1 (40 mg) Tablet, enteric coated Oral daily Allergies: Penicillins Vital Signs: Performed on Sep 01, 2021 16:32 Height - 70.00 in Weight - 199.2 lbs (HIGH) BSA - 2.08 sq.m BMI - 28.58 Temperature - 97.3 F (LOW) Pulse - 74 /min Respiration - 16 /min BP - 178/95 mm(hg) (HIGH) O2 Sat - 97 % Pain - 1 Fatigue - 4 Physical Examination: Constitutional - He looks good generally, Eyes - Sclerae nonicteric. Conjunctivae clear, ENMT - No lesions noted in the oral cavity, Hematologic/Lymphatic - No cervical, clavicular, or axillary adenopathy, Respiratory - Lungs are clear with good air movement bilaterally, Cardiovascular - Heart rhythm is regular. There is no murmur, gallop, or rub noted, Abdomen - Soft. Liver and spleen are not enlarged. There is no abdominal mass or ascites noted. There is no inguinal adenopathy noted, Extremities - No edema, Neurologic - No focal neurologic deficits noted. Lab/Imaging: CBC shows hemoglobin 14.6 g, white blood cell count 5800, and platelet count 185,000. The automated differential shows 53% neutrophils, 33% lymphocytes, 8% monocytes, and 3% eosinophils. Comprehensive metabolic profile shows stable renal function with BUN 14 and creatinine 1.1 mg/dL. Bilirubin and liver enzymes are normal. LDH is normal at 166 U/L. Problem List: 1. Chronic lymphocytic leukemia/small lymphocytic lymphoma. He had Greer stage II disease, but with extensive, bulky lymphadenopathy. 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 His IGHV was found to be nonmutated by PCR sequencing. 2. Hypertension. 3. Hyperlipidemia. 4. GERD. 5. Gout. 6. He has a history of colonic polyps. He had one polyp on his surveillance colonoscopy in 2020. 7. In April 2018 he was admitted to the hospital with mild pancreatitis. Problems Addressed with this Encounter and Plan: Patient with chronic lymphocytic leukemia/small lymphocytic lymphoma. He had Greer stage II disease, but with extensive, bulky lymphadenopathy at initial diagnosis in August 2017. 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 His IGHV was found to be nonmutated by PCR sequencing. In September 2017 he began treatment with ibrutinib 420 mg daily. He had some mild fatigue with it, and he also had ocular symptoms including dry eyes and mattering. He initally was mildly anemic. However, he did have a very good clinical response. His treatment, though, was stopped in January 2018 after he developed multiple mouth sores, worsening of his ocular symptoms, and the follicular skin eruption. Those symptoms subsequently improved, and he was then able to restart treatment with the dosage reduced to 280 mg daily. He has since then been tolerating treatment with acceptable toxicity, thus far with no evidence of recurrence/progression of the chronic lymphocytic leukemia. During follow-up he has been reporting symptoms of cognitive dysfunction, which may be treatment related. In addition, his blood pressure has remained mildly elevated. Overall, though, is still doing well clinically. There has been no evidence of progression of the chronic lymphocytic leukemia. At this point I am going to have him try decreasing the dosage of ibrutinib to 140 mg daily. If his symptoms do not improve or if there is evidence of progression of the CLL, I will recommend changing treatment to venetoclax/rituximab. He will be scheduled for repeat CBC in 3 months and for a follow-up visit in 6 months. Signed By: Babatunde Gonzalez M.D. <<Signature on File>>
== END 2021-09-01 06:34 | disposition home or self-care (01) ==
LOC: ONCMED 06:33
PROVIDERS: PCP Nurse Practitioner Family; Visit Provider Internal Medicine Medical Oncology
DX: C91.10 Chronic lymphocytic leukemia of B-cell type not having achieved remission (principal); Q92.8 Other specified trisomies and partial trisomies of autosomes; I10 Essential (primary) hypertension; E78.5 Hyperlipidemia, unspecified; K21.9 Gastro-esophageal reflux disease without esophagitis; M10.9 Gout, unspecified; Z86.010 Personal history of colon polyps; Z86.39 Personal history of other endocrine, nutritional and metabolic disease; Z79.899 Other long term (current) drug therapy
CPT/HCPCS: 82607; 84443; 99214

== ENCOUNTER 2021-09-16 09:21 | Outpatient (CLI) | payer BC, SELFPAY ==
[2021-09-16 09:40] VITALS: BP 175/93; PULSE 83; RESP 18; TEMP 37.2; O2SAT 96; BMI 27.9
[2021-09-16 10:36] VITALS: BP 153/86; PULSE 79; RESP 18; TEMP 38; O2SAT 93
[2021-09-16 11:38] VITALS: BP 161/89; PULSE 86; RESP 16; TEMP 36.8; O2SAT 92
== END 2021-09-16 09:22 | disposition home or self-care (01) ==
LOC: OPS 09:22
PROVIDERS: PCP Nurse Practitioner Family; Visit Provider Nurse Practitioner Family
DX: U07.1 COVID-19 (principal)
CPT/HCPCS: 96365

== ENCOUNTER 2021-12-09 09:16 | Outpatient (CLI) | payer BC, SELFPAY | END 2021-12-09 09:17 | disposition home or self-care (01) | LOC: RAD 01-31 09:17 | PROVIDERS: PCP Nurse Practitioner Family; Visit Provider Nurse Practitioner Family | DX: E78.2 Mixed hyperlipidemia (principal); C83.08 Small cell B-cell lymphoma, lymph nodes of multiple sites | CPT/HCPCS: 80061; 85025 ==

== ENCOUNTER 2022-01-27 09:49 | Oncology outpatient (recurring) (ONCR) | payer BC, SELFPAY | END 2022-02-22 23:59 | disposition home or self-care (01) | PROVIDERS: PCP Nurse Practitioner Family; Visit Provider Internal Medicine Medical Oncology | DX: Z53.9 Procedure and treatment not carried out, unspecified reason (principal) ==

== ENCOUNTER → 2022-02-16 12:04 | Outpatient (BNVA) | payer BC, SELFPAY | PROVIDERS: PCP Nurse Practitioner Family; Visit Provider Nurse Practitioner Family | DX: G47.9 Sleep disorder, unspecified (principal); R07.9 Chest pain, unspecified | CPT/HCPCS: 84484 ==

== ENCOUNTER → 2022-03-01 10:43 | Outpatient (BNVA) | payer BC, SELFPAY | PROVIDERS: PCP Nurse Practitioner Family; Visit Provider Internal Medicine Medical Oncology | DX: C83.08 Small cell B-cell lymphoma, lymph nodes of multiple sites (principal) | CPT/HCPCS: 80053; 83615; 85025 ==

== ENCOUNTER 2022-03-02 16:15 | Oncology outpatient (recurring) (ONCR) | payer BC, SELFPAY | END 2022-03-24 23:59 | disposition home or self-care (01) | PROVIDERS: PCP Nurse Practitioner Family; Visit Provider Internal Medicine Medical Oncology | DX: C91.10 Chronic lymphocytic leukemia of B-cell type not having achieved remission (principal); R53.83 Other fatigue; D64.9 Anemia, unspecified; H04.123 Dry eye syndrome of bilateral lacrimal glands; Z79.899 Other long term (current) drug therapy ==

== ENCOUNTER 2022-06-07 09:51 | Oncology outpatient (recurring) (ONCR) | payer BC, SELFPAY ==
[2022-06-07 10:17] LABS: Basophils # 0.1 10^3/uL (0.0-0.1); Basophils % 0.9 %; Eosinophils # 0.2 10^3/uL (0.0-0.8); Eosinophils % 3.4 %; Hematocrit 42.2 % (42.0-52.0); Hemoglobin 13.9 g/dL (11.7-16.6); Lymphocytes # 1.5 10^3/uL (0.8-4.8); Lymphocytes % 26.1 %; Mean Corpuscular HGB Conc 32.9 g/dL (30.0-36.0); Mean Corpuscular Hemoglobin 29.3 pg (28.0-34.0); Mean Corpuscular Volume 88.8 fl (80-94); Mean Platelet Volume 10.4 fL (7.4-10.4); Monocytes # 0.5 10^3/uL (0.2-0.9); Monocytes % 8.5 %; Neutrophils # 3.43 10^3/uL (1.8-7.7); Neutrophils % 60.7 %; Nucleated Red Blood Cells % 0 %; Platelet Count 235 10^3/cmm (130-400); Red Blood Count 4.75 10^6/uL (4.1-5.3); Red Cell Distribution Width 12.6 % (12.1-15.1); White Blood Count 5.6 10^3/uL (4.0-10.0)
[2022-06-07 10:43] LABS: Alanine Aminotransferase 20 U/L (0-41); Albumin Level 4.4 g/dL (3.5-5.2); Alkaline Phosphatase 96 U/L (40-130); Anion Gap 16.3 (5-19); Aspartate Amino Transferase 17 U/L (0-40); Blood Urea Nitrogen 15 mg/dL (8-23); Calcium 9.2 mg/dL (8.5-10.5); Carbon Dioxide 24 mmol/L (22-29); Chloride 102 mmol/L (98-107); Globulin 2.7 g/dL (1.3-4.6); Glomerular Filtration Rate 68.1 mL/min (90-130); Glucose 105 mg/dL (65-115); Lactate Dehydrogenase 193 U/L (135-225); Osmolality Calculated 287 mOsm/kg (285-295); Potassium 4.3 mmol/L (3.5-5.1); Sodium 138 mmol/L (136-145); Total Bilirubin 0.4 mg/dL (0.15-1.2); Total Protein 7.1 g/dL (6.6-8.7)
== END 2022-06-24 23:59 | disposition home or self-care (01) ==
PROVIDERS: Nurse Practitioner; PCP Nurse Practitioner Family; Visit Provider Internal Medicine Medical Oncology
DX: C83.08 Small cell B-cell lymphoma, lymph nodes of multiple sites (principal)
CPT/HCPCS: 36415; 80053; 83615; 85025

== ENCOUNTER 2022-08-29 12:15 | Oncology outpatient (recurring) (ONCR) | payer BC, SELFPAY ==
[2022-08-29 12:41] LABS: Basophils % 0.6 %; Eosinophils # 0.3 10^3/uL (0.0-0.8); Eosinophils % 3.6 %; Hemoglobin 14.1 g/dL (11.7-16.6); Lymphocytes # 2.1 10^3/uL (0.8-4.8); Lymphocytes % 29.9 %; Mean Corpuscular HGB Conc 32.8 g/dL (30.0-36.0); Mean Corpuscular Hemoglobin 29.6 pg (28.0-34.0); Mean Corpuscular Volume 90.3 fl (80-94); Mean Platelet Volume 10.4 fL (7.4-10.4); Monocytes # 0.6 10^3/uL (0.2-0.9); Neutrophils # 3.89 10^3/uL (1.8-7.7); Neutrophils % 56.6 %; Nucleated Red Blood Cells % 0 %; Platelet Count 216 10^3/cmm (130-400); Red Blood Count 4.76 10^6/uL (4.1-5.3); Red Cell Distribution Width 12.6 % (12.1-15.1); White Blood Count 6.9 10^3/uL (4.0-10.0)
[2022-08-29 13:02] LABS: Alanine Aminotransferase 24 U/L (0-41); Albumin Level 4.2 g/dL (3.5-5.2); Alkaline Phosphatase 91 U/L (40-130); Anion Gap 10.9 (5-19); Aspartate Amino Transferase 20 U/L (0-40); Blood Urea Nitrogen 18 mg/dL (8-23); Calcium 9.2 mg/dL (8.5-10.5); Carbon Dioxide 28 mmol/L (22-29); Chloride 98 mmol/L (98-107); Globulin 2.8 g/dL (1.3-4.6); Glomerular Filtration Rate 68.1 mL/min (90-130); Glucose 86 mg/dL (65-115); Osmolality Calculated 277 mOsm/kg (285-295); Potassium 3.9 mmol/L (3.5-5.1); Sodium 133 mmol/L (136-145); Total Bilirubin 0.5 mg/dL (0.15-1.2)
== END 2022-09-24 23:59 | disposition home or self-care (01) ==
PROVIDERS: Nurse Practitioner; PCP Nurse Practitioner Family; Visit Provider Internal Medicine Medical Oncology
DX: C83.08 Small cell B-cell lymphoma, lymph nodes of multiple sites
CPT/HCPCS: 36415; 80053; 85025

== ENCOUNTER → 2022-12-09 11:41 | Outpatient (BNVA) | payer BC, SELFPAY | PROVIDERS: PCP Nurse Practitioner Family; Visit Provider Nurse Practitioner Family | DX: C91.10 Chronic lymphocytic leukemia of B-cell type not having achieved remission (principal) | CPT/HCPCS: 85025 ==

== ENCOUNTER 2023-01-17 10:34 | Outpatient (CLI) | payer BC, SELFPAY ==
[2023-01-17 10:59] LABS: Basophils % 0.4 %; Eosinophils # 0.4 10^3/uL (0.0-0.8); Eosinophils % 4.8 %; Hematocrit 43.2 % (42.0-52.0); Hemoglobin 14.3 g/dL (11.7-16.6); Lymphocytes # 1.5 10^3/uL (0.8-4.8); Mean Corpuscular HGB Conc 33.1 g/dL (30.0-36.0); Mean Corpuscular Hemoglobin 28.2 pg (28.0-34.0); Mean Corpuscular Volume 85.2 fl (80-94); Mean Platelet Volume 10.1 fL (7.4-10.4); Monocytes % 13.3 %; Neutrophils # 4.32 10^3/uL (1.8-7.7); Neutrophils % 59.8 %; Nucleated Red Blood Cells % 0 %; Platelet Count 127 10^3/cmm (130-400); Red Blood Count 5.07 10^6/uL (4.1-5.3); Red Cell Distribution Width 12.8 % (12.1-15.1); White Blood Count 7.2 10^3/uL (4.0-10.0)
[2023-01-17 11:02] LABS: Erythrocyte Sedimentation Rate 12 mm/hr (0-10)
[2023-01-17 11:09] LABS: Slide Review Slide Review Perform
[2023-01-17 11:20] LABS: Alanine Aminotransferase 44 U/L (0-41); Albumin Level 4.2 g/dL (3.5-5.2); Alkaline Phosphatase 133 U/L (40-130); Anion Gap 15.7 (5-19); Aspartate Amino Transferase 34 U/L (0-40); Blood Urea Nitrogen 14 mg/dL (8-23); C Reactive Protein 9.9 mg/L (0.0-4.9); Calcium 8.8 mg/dL (8.5-10.5); Carbon Dioxide 27 mmol/L (22-29); Chloride 104 mmol/L (98-107); Globulin 2.7 g/dL (1.3-4.6); Glomerular Filtration Rate 75.7 mL/min (90-130); Glucose 93 mg/dL (65-115); Lactate Dehydrogenase 633 U/L (135-225); Osmolality Calculated 296 mOsm/kg (285-295); Potassium 3.7 mmol/L (3.5-5.1); Sodium 143 mmol/L (136-145); Total Bilirubin 0.4 mg/dL (0.15-1.2); Total Protein 6.9 g/dL (6.6-8.7)
[2023-01-18 13:40] LABS: Lyme AB Screen <0.90 index
[2023-01-21 21:39] LABS: RMSF IGG NOT DETECTED; RMSF IGM NOT DETECTED
[2023-01-26 11:04] LABS: E. Chaffeensis AB IGG <1:64; E. Chaffeensis AB IGM <1:20
== END 2023-01-17 10:35 | disposition home or self-care (01) ==
PROVIDERS: PCP Nurse Practitioner Family; Visit Provider Internal Medicine Medical Oncology
DX: C91.10 Chronic lymphocytic leukemia of B-cell type not having achieved remission (principal); R10.9 Unspecified abdominal pain; R50.9 Fever, unspecified
CPT/HCPCS: 80053; 83615; 85025; 85651; 86140; 86618; 86666; 86757

== ENCOUNTER 2023-01-21 06:24 | Outpatient (CLI) | payer BC, SELFPAY ==
--- NOTE | 2023-01-21 12:30 | PETR_ITS ---
PROCEDURE INFORMATION: Exam: PET/CT Skull Base to Mid-thigh Exam date and time: 01/21/2023 1:04 PM Age: 62 years old Clinical indication: Condition or disease; Primary cancer: Cll; Follow-up oncological assessment; Additional info: Restaging for cll LABS AND CLINICAL REPORTS: Glucose: 93 mg/dl Treatment strategy for malignancy (PET staging): Restaging (PS) TECHNIQUE: Imaging protocol: Following at least four-hour fasting and following the injection of radiopharmaceutical, low dose CT images were obtained. Then, PET images were obtained. Attenuation corrected images were constructed using the CT scan. Fused images of PET and CT were reviewed. The standardized uptake values (SUV) reported below are maximum values within a region of interest, expressed in gm/ml. Exam includes orbital meatal line to mid-thigh. Radiopharmaceutical: 12.24 mCi F-18 FDG (Fluorodeoxyglucose), IV. Time of imaging post radiopharmaceutical administration: 1 hour Injection site: Right AC COMPARISON: CT abdomen pelvis w con* [id number] 10/09/2017 2:27 PM and 04/26/2018 FINDINGS: Brain: Visualized brain has normal physiologic uptake. Paranasal sinuses: Mucosal retention cyst in the right maxillary sinus. Pharynx: There is some symmetric FDG uptake in the tonsillar regions with SUV max 8.9, which may be physiologic. Larynx: No abnormal uptake. Lungs, pleura and trachea: No abnormal uptake. Heart: Normal physiologic uptake. Mediastinal space: No abnormal uptake. Liver: No abnormal uptake. Gallbladder and bile ducts: No abnormal uptake. Pancreas: No abnormal uptake. Spleen: There is diffuse uptake within the spleen with SUV max 5.5. Mild splenomegaly. Adrenal glands: No abnormal uptake. Kidneys and ureters: Normal physiologic uptake. Stomach and bowel: No abnormal uptake. Appendix: Appendectomy. Vasculature: No abnormal uptake. Lymph nodes: Hypermetabolic bilateral cervical chain lymphadenopathy with SUV max 7.9 bilaterally involving a 1.6 cm right level 3 lymph node on image 35 and a 1.7 cm left level 2 lymph node on image 26. Hypermetabolic right axillary lymphadenopathy with SUV max 7.1 involving a 1.6 cm right axillary lymph node on image 50. Hypermetabolic left axillary lymphadenopathy with SUV max 7.4 involving a 1.6 cm left axillary lymph node on image 44. Hypermetabolic mediastinal lymphadenopathy with SUV max 7.5 involving a 1.4 cm right paratracheal lymph node on image 53. Hypermetabolic periportal lymphadenopathy with SUV max 7.3. Compared to 2018, interval enlargement of mesenteric lymph nodes centered in the left hemiabdomen with SUV max 8.1. Index lymph node measures up to 4.5 cm on image 105. Hypermetabolic retroperitoneal lymphadenopathy with SUV max 7.2 involving a kacey conglomerate along the left side of the aorta measuring up to 2.4 cm on image 103. Hypermetabolic right common iliac chain lymph nodes with SUV max 8.6 involving a 1.1 cm lymph node on image 130. Hypermetabolic right pelvic sidewall lymphadenopathy with SUV max 9.4 involving a 1.4 cm lymph node on image 147. Hypermetabolic right inguinal lymphadenopathy with SUV max 5.8. Hypermetabolic left common iliac chain lymphadenopathy with SUV max 6.6. Hypermetabolic left pelvic sidewall lymphadenopathy with SUV max 9.2 involving a 1.4 cm lymph node on image 147. Hypermetabolic left inguinal lymphadenopathy with SUV max 4.3. Bones/joints: No abnormal uptake in the visualized axial and appendicular skeleton. Soft tissues: No abnormal uptake in the visualized head, neck, chest, abdomen, pelvis, and extremities. PET/PET [facility] INITIAL [id number] IMPRESSION: Interval disease progression with hypermetabolic, enlarged lymph nodes in the cervical chains, axillae, mediastinum, retroperitoneum, mesentery, pelvic sidewalls and inguinal regions. There is also diffuse increased FDG uptake within the spleen.
== END 2023-01-21 06:25 | disposition home or self-care (01) ==
PROVIDERS: PCP Nurse Practitioner Family; Visit Provider Internal Medicine Medical Oncology
DX: C91.10 Chronic lymphocytic leukemia of B-cell type not having achieved remission (principal)
CPT/HCPCS: 78815; A9552

== ENCOUNTER 2023-01-23 09:24 | Day surgery (SDC) | payer BC, SELFPAY ==
[2023-01-20 13:25] VITALS: BMI 27.2
[2023-01-23 09:46] VITALS: BP 138/80; PULSE 69; RESP 16; TEMP 36.3; O2SAT 96
[2023-01-23] MEDS: sodium chloride 0.9% 1,000 ML 30 ML IV (09:55)
[2023-01-23 10:03] LABS: Basophils # 0.1 10^3/uL (0.0-0.1); Basophils % 0.9 %; Eosinophils # 0.7 10^3/uL (0.0-0.8); Eosinophils % 7.3 %; Hematocrit 43.9 % (42.0-52.0); Hemoglobin 14.5 g/dL (11.7-16.6); Lymphocytes # 2.3 10^3/uL (0.8-4.8); Lymphocytes % 25.8 %; Mean Corpuscular Hemoglobin 28.5 pg (28.0-34.0); Mean Corpuscular Volume 86.4 fl (80-94); Mean Platelet Volume 9.8 fL (7.4-10.4); Monocytes # 1.5 10^3/uL (0.2-0.9); Monocytes % 16.9 %; Neutrophils # 4.35 10^3/uL (1.8-7.7); Neutrophils % 48.4 %; Nucleated Red Blood Cells % 0 %; Platelet Count 186 10^3/cmm (130-400); Red Blood Count 5.08 10^6/uL (4.1-5.3)
[2023-01-23 10:19] LABS: Alanine Aminotransferase 56 U/L (0-41); Albumin Level 4.3 g/dL (3.5-5.2); Alkaline Phosphatase 155 U/L (40-130); Aspartate Amino Transferase 34 U/L (0-40); Blood Urea Nitrogen 19 mg/dL (8-23); Calcium 9.3 mg/dL (8.5-10.5); Carbon Dioxide 26 mmol/L (22-29); Chloride 103 mmol/L (98-107); Erythrocyte Sedimentation Rate 10 mm/hr (0-10); Globulin 3.1 g/dL (1.3-4.6); Glomerular Filtration Rate 67.8 mL/min (90-130); Glucose 103 mg/dL (65-115); Lactate Dehydrogenase 629 U/L (135-225); Osmolality Calculated 293 mOsm/kg (285-295); Sodium 140 mmol/L (136-145); Total Bilirubin 0.4 mg/dL (0.15-1.2); Total Protein 7.4 g/dL (6.6-8.7)
[2023-01-23 10:34] LABS: Slide Review Slide Review Perform
--- NOTE | 2023-01-23 11:15 | ANES.PREANE2 ---
Pre-Anesthetic Assessment Height/Weight: Height 1.78 m Weight 86.183 kg Temp Pulse Resp BP Pulse Ox O2 Del Method 97.4 F L 69 16 138/80 96 Room Air 01/23/23 09:46 01/23/23 09:46 01/23/23 09:46 01/23/23 09:46 01/23/23 09:46 01/23/23 09:46 Operation Date: 01/23/23 12:00 Proposed Procedures p Bone Marrow Biospy With Aspiration(Not Applicable) - Kristie Quinn MD Familial anesthetic complications: None Was Beta Darryl taken within 24 hours: N/A Was Clonidine taken within 24 hours: N/A Last intake: Intake Last Liquid Date 01/22/23 Last Liquid Time 20:00 Last Solid Date 01/22/23 Last Solid Time 20:00 Social No alcohol and No tobacco Exam alert, oriented x 3, clear to auscultation bilaterally and regular rate & rhythm Airway Mallampati: Class III Dentition: full CV/HEM Hypertension GI Gastroesophageal Reflux Disease Metabolic Hyperlipidemia [facility] [place]el CLL Anesthetic Plan ASA status: 3 Anesthesia: MAC Risk of > 500 ml blood loss (7ml/kg in children): No Medications/Allergies Home Medications Medication Instructions Recorded Confirmed Last Taken Type allopurinol 100 mg tablet 100 mg PO DAILY 90 days #90 tabs 12/08/21 01/23/23 01/20/23 Rx pantoprazole 40 mg tablet,delayed 40 mg PO DAILY 90 days #90 tabs 12/08/21 01/23/23 01/19/23 Rx release pravastatin 40 mg tablet 40 mg PO DAILY 90 days #90 tabs 12/08/21 01/23/23 01/22/23 Rx lisinopril 20 1 tab PO DAILY 90 days #90 tabs 12/19/22 01/23/23 01/20/23 Rx mg-hydrochlorothiazide 25 mg tablet ibrutinib 140 mg capsule 140 mg PO DAILY #28 caps 01/09/23 01/23/23 Unknown Rx (Imbruvica) Allergies Allergy/AdvReac Type Severity Reaction Status Date / Time Penicillins Allergy Unknown Verified 01/23/23 09:45 Current Medications Generic Name Dose Route Start Last Admin Trade Name Freq PRN Reason Stop Dose Admin Sodium Chloride 1,000 mls @ 30 mls/hr 01/23/23 09:45 01/23/23 09:55 Sodium Chloride 0.9% IV 01/24/23 09:44 30 mls/hr .Q24H XENIA Administration PFSH Anesthesia Medical History Chronic lymphocytic leukemia Essential (primary) hypertension Gastric reflux Gout of left foot History of colonic polyps Mixed hyperlipidemia Surgical History History of lymph node biopsy (08/28/17) Left inguinal lymph node biopsy Status post cecostomy Laparoscopic partial cecectomy 06/06/2018 Family History Other Hypertension Denies family history of Bleeding disorder Social History Smoking and tobacco status: never smoked Second hand smoke exposure: No Smoking risk assessment/counseling performed?: No Alcohol intake: never Desire information about alcohol rehabilitation?: No Counseling given: No Substance/Drug Use: never Desire information about substance/drug rehabilitation?: No Counseling given: No Adopted: No Caregiver/support person: No Lives independently: Yes Household members: spouse Housing: House Marital status: Current occupational status: employed 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 Do you think of yourself as: Straight/Heterosexual Current gender identity: Male Data Anesthesia 01/23/23 09:53 01/23/23 09:53 Short CBC 01/23/23 Range/Units 09:53 WBC 9.0 (4.0-10.0) 10^3/uL Hgb 14.5 (11.7-16.6) g/dL Hct 43.9 (42.0-52.0) % MCV 86.4 (80-94) fl Plt Count 186 (130-400) 10^3/cmm Neut % (Auto) 48.4 % Neut # (Auto) 4.35 (1.8-7.7) 10^3/uL BMP 01/23/23 09:53 Sodium 140 Potassium 4.0 Chloride 103 Carbon Dioxide 26 BUN 19 Creatinine 1.1 Glucose 103 Calcium 9.3 Liver Function 01/23/23 Range/Units 09:53 Total Bilirubin 0.4 (0.15-1.2) mg/dL AST 34 (0-40) U/L ALT 56 H (0-41) U/L Alkaline Phosphatase 155 H (40-130) U/L Albumin 4.3 (3.5-5.2) g/dL Coags 01/23/23 01/23/23 09:53 09:53 ESR 10 C-Reactive Protein 3.0 Cardiac Studies: No Data to Display
--- NOTE | 2023-01-23 11:56 | W.PM.OPSUD ---
Surgery/Procedure H&P Update DATE OF PROCEDURE: January 23, 2023 DATE H&P PERFORMED: 01/23/23 CHANGES TO PREVIOUS DOCUMENTATION: Patient seen and examined, no new complaints since his last visit in the clinic PRIMARY INDICATION FOR PROCEDURE: History of CLL, to rule out transformation into aggressive lymphoproliferative disorder PLANNED PROCEDURE: Operation Date: 01/23/23 12:00 Proposed Procedures p Bone Marrow Biospy With Aspiration(Not Applicable) - Kristie Quinn MD
--- NOTE | 2023-01-23 12:27 | P.PCN_ITS ---
Bone Marrow Biopsy Bone Marrow Biopsy: I was consulted by [] office regarding bone marrow biopsy on Italo Barrios[]. Briefly, the patient is a [62] year old [Male] with [History of CLL]. In the Outpatient Services Department, with nursing staff and laboratory technologists in attendance, the procedure was discussed with the patient. Appropriate consent form had been signed. Appropriate alternatives, benefits and risks of procedure were discussed with the patient and he was pre- operatively assessed with a history and physical by myself and cleared for the biopsy procedure. The patient did request IV sedation and that was provided by the Anesthesia Department. Under aseptic condition right posterior iliac area was cleaned and prepped, local anesthesia was given, about 15 cc of bone marrow aspirate and core biopsy was obtained, hemostasis was obtained, patient tolerated procedure well, specimen was sent for routine histopathology, flow cytometry, cytogenetic, lymphoma/leukemia panel. Postprocedure nursing instructions were given Thank you for allowing me to participate in this patient's care and diagnosis. Coding Level of Care Code Acute Code for Joseline Fwsharonda
[2023-01-23 12:28] VITALS: BP 112/68; PULSE 68; RESP 18; TEMP 36.4; O2SAT 95
[2023-01-23 12:33] VITALS: BP 105/71; PULSE 67; RESP 18; O2SAT 94
--- NOTE | 2023-01-23 12:35 | PC.NURSE ---
1228 dressing to right hip clean dry and intact 1230 dressing to right hip clean dry and intact 1235 dressing to right hip clean dry and intact
[2023-01-23 12:43] VITALS: BP 129/85; PULSE 65; RESP 18; O2SAT 94
--- NOTE | 2023-01-23 12:47 | PC.NURSE ---
dressing to right hip remains clean dry and intact
--- NOTE | 2023-01-23 13:00 | PC.NURSE ---
dressing remains clean dry and intact to right hip
--- NOTE | 2023-01-23 13:06 | ANE.PACU2 ---
Inpatient post-anesthesia follow up: Airway intact: Yes Vital signs: Temperature 97.5 F Pulse Rate 65 Respiratory Rate 18 Blood Pressure 129/85 Pulse Oximetry 94 Oxygen Delivery Me thod Room Air Oxygen Flow Rate Fraction of Inspir ed Oxygen Hydration adequate: Yes Nausea and vomiting: No Pain level: 1 Mental status: Baseline
[2023-01-25 10:26] LABS: Leukemia Profile (BBPL) See Report; Lymphoma Profile (BBPL) See Report
[2023-01-31 07:26] LABS: High Grade Lymphoma (FISH)BBPL See Report
[2023-02-02 10:45] LABS: CLL Prognostic Panel (BBPL) See Report; Chromosome Analysis BBPL See Report
== END 2023-01-23 13:07 | disposition home or self-care (01) ==
PROVIDERS: Internal Medicine Medical Oncology; PCP Nurse Practitioner Family; Visit Provider Internal Medicine Hematology & Oncology
PROC: 07DT3ZX Extraction of Bone Marrow, Percutaneous Approach, Diagnostic (ICD-10-PCS; CPT 38222; principal; 2023-01-23 12:00)
DX: C91.10 Chronic lymphocytic leukemia of B-cell type not having achieved remission (principal); I10 Essential (primary) hypertension; E78.2 Mixed hyperlipidemia; K21.9 Gastro-esophageal reflux disease without esophagitis; Z79.899 Other long term (current) drug therapy; Z88.0 Allergy status to penicillin
CPT/HCPCS: 36415; 38222; 80053; 81263; 82232; 83615; 85025; 85651; 86140; 88184; 88185; 88237; 88264; 88271; 88291; 88305; 88311; 88367; 88374; J2704; J7030

== ENCOUNTER 2023-03-20 07:42 | Oncology outpatient (recurring) (ONCR) | payer BC, SELFPAY ==
[2023-03-03 07:55] VITALS: BP 140/82; PULSE 72; RESP 16; TEMP 36.3; O2SAT 95
[2023-03-03 08:02] LABS: Basophils % 0.5 %; Eosinophils # 0.1 10^3/uL (0.0-0.8); Eosinophils % 1.4 %; Hemoglobin 13.3 g/dL (11.7-16.6); Lymphocytes # 3.5 10^3/uL (0.8-4.8); Lymphocytes % 52.6 %; Mean Corpuscular HGB Conc 32.4 g/dL (30.0-36.0); Mean Corpuscular Hemoglobin 28.9 pg (28.0-34.0); Mean Corpuscular Volume 88.9 fl (80-94); Mean Platelet Volume 8.5 fL (7.4-10.4); Monocytes # 0.4 10^3/uL (0.2-0.9); Monocytes % 6.2 %; Neutrophils # 2.55 10^3/uL (1.8-7.7); Neutrophils % 38.2 %; Nucleated Red Blood Cells % 0 %; Platelet Count 177 10^3/cmm (130-400); Red Blood Count 4.61 10^6/uL (4.1-5.3); Red Cell Distribution Width 14.4 % (12.1-15.1); White Blood Count 6.7 10^3/uL (4.0-10.0)
[2023-03-10 07:59] VITALS: BP 150/84; PULSE 74; RESP 16; TEMP 36.5; O2SAT 97
[2023-03-10 08:09] LABS: Hematocrit 39.3 % (42.0-52.0); Hemoglobin 12.6 g/dL (11.7-16.6); Mean Corpuscular HGB Conc 32.1 g/dL (30.0-36.0); Mean Corpuscular Hemoglobin 28.8 pg (28.0-34.0); Mean Corpuscular Volume 89.7 fl (80-94); Mean Platelet Volume 8.7 fL (7.4-10.4); Platelet Count 154 10^3/cmm (130-400); Red Blood Count 4.38 10^6/uL (4.1-5.3); Red Cell Distribution Width 14.4 % (12.1-15.1); White Blood Count 5.4 10^3/uL (4.0-10.0)
[2023-03-10 08:19] LABS: Alanine Aminotransferase 36 U/L (0-41); Albumin Level 3.9 g/dL (3.5-5.2); Alkaline Phosphatase 71 U/L (40-130); Anion Gap 13.9 (5-19); Aspartate Amino Transferase 19 U/L (0-40); Blood Urea Nitrogen 18 mg/dL (8-23); Calcium 8.6 mg/dL (8.5-10.5); Carbon Dioxide 27 mmol/L (22-29); Chloride 100 mmol/L (98-107); Globulin 2.2 g/dL (1.3-4.6); Glomerular Filtration Rate 75.7 mL/min (90-130); Glucose 82 mg/dL (65-115); Lactate Dehydrogenase 277 U/L (135-225); Osmolality Calculated 285 mOsm/kg (285-295); Potassium 3.9 mmol/L (3.5-5.1); Sodium 137 mmol/L (136-145); Total Bilirubin 0.5 mg/dL (0.15-1.2); Total Protein 6.1 g/dL (6.6-8.7)
[2023-03-10 08:51] LABS: Absolute Neutrophil 2.4 10^3/cmm (1.4-6.5); Absolute Segmented Neutrophil 2.4 10/cmm (1.6-7.1); Eosinophils 0 %; Lymphocytes 36 %; Lymphocytes Absolute 2.6 10^3/cmm (1.2-3.4); Monocytes Absolute 0.3 10^3/cmm (0.1-0.6); Platelet Estimate Normal (Normal); Segmented Neutrophils 45 %; Slide Review Slide Review Perform; Total Cells Counted 100 (0-100)
[2023-03-20 07:00] VITALS: BP 151/88; PULSE 79; RESP 18; TEMP 36; O2SAT 96
[2023-03-20 08:06] LABS: Basophils % 0.2 %; Eosinophils % 0.4 %; Hematocrit 37.2 % (42.0-52.0); Hemoglobin 12.4 g/dL (11.7-16.6); Lymphocytes # 2.1 10^3/uL (0.8-4.8); Lymphocytes % 38.4 %; Mean Corpuscular HGB Conc 33.3 g/dL (30.0-36.0); Mean Corpuscular Hemoglobin 29.2 pg (28.0-34.0); Mean Corpuscular Volume 87.5 fl (80-94); Monocytes # 0.5 10^3/uL (0.2-0.9); Monocytes % 9.5 %; Neutrophils # 2.72 10^3/uL (1.8-7.7); Neutrophils % 50.4 %; Nucleated Red Blood Cells % 0 %; Platelet Count 152 10^3/cmm (130-400); Red Blood Count 4.25 10^6/uL (4.1-5.3); Red Cell Distribution Width 14.6 % (12.1-15.1); White Blood Count 5.4 10^3/uL (4.0-10.0)
[2023-03-20 08:31] LABS: Alanine Aminotransferase 27 U/L (0-41); Alkaline Phosphatase 77 U/L (40-130); Anion Gap 14.9 (5-19); Aspartate Amino Transferase 16 U/L (0-40); Blood Urea Nitrogen 24 mg/dL (8-23); Calcium 9.2 mg/dL (8.5-10.5); Carbon Dioxide 25 mmol/L (22-29); Chloride 100 mmol/L (98-107); Globulin 2.4 g/dL (1.3-4.6); Glucose 93 mg/dL (65-115); Lactate Dehydrogenase 203 U/L (135-225); Osmolality Calculated 286 mOsm/kg (285-295); Potassium 3.9 mmol/L (3.5-5.1); Sodium 136 mmol/L (136-145); Total Bilirubin 0.5 mg/dL (0.15-1.2); Total Protein 6.4 g/dL (6.6-8.7)
== END 2023-03-24 23:59 | disposition home or self-care (01) ==
PROVIDERS: PCP Nurse Practitioner Family; Visit Provider Internal Medicine Medical Oncology
DX: C91.10 Chronic lymphocytic leukemia of B-cell type not having achieved remission (principal)
CPT/HCPCS: 36415; 80053; 83615; 85007; 85025

== ENCOUNTER → 2023-03-27 09:20 | Outpatient (BNVA) | payer BC, SELFPAY | PROVIDERS: PCP Nurse Practitioner Family; Visit Provider Internal Medicine Medical Oncology | DX: C91.10 Chronic lymphocytic leukemia of B-cell type not having achieved remission (principal) | CPT/HCPCS: 80053; 83615; 85025 ==

== ENCOUNTER → 2023-04-03 09:42 | Outpatient (BNVA) | payer BC, SELFPAY | PROVIDERS: PCP Nurse Practitioner Family; Visit Provider Nurse Practitioner Family | DX: C91.10 Chronic lymphocytic leukemia of B-cell type not having achieved remission (principal) | CPT/HCPCS: 80053; 83615; 85025 ==

== ENCOUNTER 2023-04-10 08:00 | Oncology outpatient (recurring) (ONCR) | payer BC, SELFPAY ==
[2023-04-10] VITALS (11 sets, daily range): BP systolic 144–165; BP diastolic 85–97; PULSE 75–92; RESP 16–18; TEMP 35.9–36.4; O2SAT 95–99
[2023-04-10 08:31] LABS: Basophils % 0.2 %; Hematocrit 39.8 % (42.0-52.0); Hemoglobin 13.3 g/dL (11.7-16.6); Lymphocytes # 1.2 10^3/uL (0.8-4.8); Lymphocytes % 19.5 %; Mean Corpuscular HGB Conc 33.4 g/dL (30.0-36.0); Mean Corpuscular Hemoglobin 30.1 pg (28.0-34.0); Monocytes # 0.6 10^3/uL (0.2-0.9); Monocytes % 9.4 %; Neutrophils # 4.43 10^3/uL (1.8-7.7); Neutrophils % 69.5 %; Nucleated Red Blood Cells % 0 %; Platelet Count 270 10^3/cmm (130-400); Red Blood Count 4.42 10^6/uL (4.1-5.3); Red Cell Distribution Width 15.2 % (12.1-15.1); White Blood Count 6.4 10^3/uL (4.0-10.0)
[2023-04-10 08:51] LABS: Alanine Aminotransferase 26 U/L (0-41); Alkaline Phosphatase 89 U/L (40-130); Aspartate Amino Transferase 14 U/L (0-40); Blood Urea Nitrogen 25 mg/dL (8-23); Calcium 9.2 mg/dL (8.5-10.5); Carbon Dioxide 25 mmol/L (22-29); Chloride 100 mmol/L (98-107); Globulin 2.7 g/dL (1.3-4.6); Glomerular Filtration Rate 85.5 mL/min (90-130); Glucose 100 mg/dL (65-115); Lactate Dehydrogenase 151 U/L (135-225); Osmolality Calculated 284 mOsm/kg (285-295); Sodium 135 mmol/L (136-145); Total Bilirubin 0.4 mg/dL (0.15-1.2); Total Protein 6.7 g/dL (6.6-8.7)
[2023-04-10] MEDS: acetaminophen 325 mg Tablet 650 MG PO (10:10)
[2023-04-10] MEDS: sodium chloride 0.9% 500 ML 75 ML IV (10:11)
[2023-04-10] MEDS: diphenhydrAMINE 50 mg/mL SDV 1mL 25 MG IVP (10:16)
== END 2023-04-24 23:59 | disposition home or self-care (01) ==
PROVIDERS: PCP Nurse Practitioner Family; Visit Provider Internal Medicine Medical Oncology
DX: Z51.12 Encounter for antineoplastic immunotherapy (principal); C91.10 Chronic lymphocytic leukemia of B-cell type not having achieved remission
CPT/HCPCS: 80053; 83615; 85025; 96375; 96413; 96415; J1200; J7040; J9312

== ENCOUNTER → 2023-04-18 08:50 | Outpatient (BNVA) | payer BC, SELFPAY | PROVIDERS: PCP Nurse Practitioner Family; Visit Provider Internal Medicine Medical Oncology | DX: C91.10 Chronic lymphocytic leukemia of B-cell type not having achieved remission (principal) | CPT/HCPCS: 80053; 85025 ==

== ENCOUNTER 2023-04-25 15:23 | Outpatient (CLI) | payer BC, SELFPAY ==
--- NOTE | 2023-04-25 15:30 | XRR_ITS ---
PROCEDURE INFORMATION: Exam: XR Left Hip Exam date and time: 04/25/2023 3:33 PM Age: 62 years old Clinical indication: Hip pain; Left hip; Patient HX: Pain going down left side for about 3 weeks, HX of lymphoma, leukemia; Additional info: M25.552 - pain in left hip TECHNIQUE: Imaging protocol: Radiologic exam of the left hip. Views: 2 or 3 views hip with pelvis when performed. COMPARISON: CT abdomen pelvis w con* [id number] 10/09/2017 2:27 PM FINDINGS: Bones/joints: Unremarkable. No acute fracture. Soft tissues: Unremarkable. XR/XR hip LT 2-3V wo/w pel* [id number] IMPRESSION: No acute findings.
--- NOTE | 2023-04-25 15:30 | XRR_ITS ---
PROCEDURE INFORMATION: Exam: XR Lumbosacral Spine Exam date and time: 04/25/2023 3:33 PM Age: 62 years old Clinical indication: Dorslagia; Patient HX: Pain going down left side for about 3 weeks HX of: Lymphoma, leukemia, ; additional info: M54.9 - dorsalgia, unspecified TECHNIQUE: Imaging protocol: Radiologic exam of the lumbosacral spine. Views: 2 or 3 views. COMPARISON: CT abdomen pelvis w con* [id number] 10/09/2017 2:27 PM FINDINGS: Bones/joints: No fracture or other acute abnormality. There is mild L4 and L5 disc space narrowing. Remaining levels are normal. Alignment is normal. Soft tissues: Unremarkable. XR/XR lumbar spine 2-3V* [id number] IMPRESSION: No acute findings.
== END 2023-04-25 15:24 | disposition home or self-care (01) ==
LOC: RAD 15:26
PROVIDERS: PCP Nurse Practitioner Family; Visit Provider Nurse Practitioner Family
DX: M54.30 Sciatica, unspecified side (principal); M54.9 Dorsalgia, unspecified; M79.605 Pain in left leg; M25.552 Pain in left hip; C91.10 Chronic lymphocytic leukemia of B-cell type not having achieved remission
CPT/HCPCS: 72100; 73502; 80053; 85025

== ENCOUNTER 2023-05-15 11:00 | Oncology outpatient (recurring) (ONCR) | payer BC, SELFPAY ==
[2023-05-08 08:14] VITALS: BMI 29.0
[2023-05-08 08:16] VITALS: BP 133/80; PULSE 98; RESP 18; TEMP 36.2; O2SAT 96
[2023-05-08 08:31] LABS: Basophils % 0.5 %; Hematocrit 38.8 % (42.0-52.0); Hemoglobin 13.5 g/dL (11.7-16.6); Lymphocytes % 47.1 %; Mean Corpuscular HGB Conc 34.8 g/dL (30.0-36.0); Mean Corpuscular Hemoglobin 30.4 pg (28.0-34.0); Mean Corpuscular Volume 87.4 fl (80-94); Mean Platelet Volume 8.4 fL (7.4-10.4); Monocytes # 0.5 10^3/uL (0.2-0.9); Monocytes % 21.9 %; Nucleated Red Blood Cells % 0 %; Platelet Count 382 10^3/cmm (130-400); Red Blood Count 4.44 10^6/uL (4.1-5.3); White Blood Count 2.1 10^3/uL (4.0-10.0)
[2023-05-08 08:34] LABS: Neutrophils # 0.63 10^3/uL (1.8-7.7)
[2023-05-08 08:50] LABS: Alanine Aminotransferase 36 U/L (0-41); Albumin Level 4.4 g/dL (3.5-5.2); Alkaline Phosphatase 94 U/L (40-130); Anion Gap 14.6 (5-19); Aspartate Amino Transferase 29 U/L (0-40); Blood Urea Nitrogen 11 mg/dL (8-23); Calcium 9.1 mg/dL (8.5-10.5); Carbon Dioxide 26 mmol/L (22-29); Chloride 101 mmol/L (98-107); Globulin 2.7 g/dL (1.3-4.6); Glomerular Filtration Rate 85.5 mL/min (90-130); Glucose 154 mg/dL (65-115); Lactate Dehydrogenase 212 U/L (135-225); Osmolality Calculated 288 mOsm/kg (285-295); Potassium 3.6 mmol/L (3.5-5.1); Sodium 138 mmol/L (136-145); Total Bilirubin 0.5 mg/dL (0.15-1.2); Total Protein 7.1 g/dL (6.6-8.7)
[2023-05-08] MEDS: acetaminophen 325 mg Tablet 650 MG PO (10:00)
[2023-05-08] MEDS: methylPREDNISolone sod succ 125 mg SDV 60 MG IVP (10:03)
[2023-05-08] MEDS: sodium chloride 0.9% 500 ML 75 ML IV (10:05)
[2023-05-08] MEDS: diphenhydrAMINE 50 mg/mL SDV 1mL 25 MG IVP (10:07)
[2023-05-08] MEDS: rituximab 1,000 MG in sodium chloride 0.9% 500 ML 100 MG IV (10:14)
[2023-05-08 10:18] VITALS: BP 117/79; PULSE 73; RESP 18; TEMP 35.8; O2SAT 97
[2023-05-08 10:55] VITALS: BP 117/76; PULSE 73; RESP 18; TEMP 35.8; O2SAT 96
[2023-05-08 11:25] VITALS: BP 110/69; PULSE 71; RESP 16; TEMP 36.1; O2SAT 93
[2023-05-08 12:05] VITALS: BP 118/73; PULSE 77; RESP 16; TEMP 36.6; O2SAT 92
[2023-05-08 13:45] VITALS: BP 138/77; PULSE 86; RESP 16; TEMP 36.1; O2SAT 96
[2023-05-15 11:04] VITALS: BMI 28.7
[2023-05-15 11:05] VITALS: BP 158/93; PULSE 86; RESP 18; TEMP 36.9; O2SAT 96
[2023-05-15 11:16] LABS: Basophils % 0.2 %; Hematocrit 37.7 % (42.0-52.0); Lymphocytes # 0.6 10^3/uL (0.8-4.8); Lymphocytes % 8.8 %; Mean Corpuscular HGB Conc 34.5 g/dL (30.0-36.0); Mean Corpuscular Hemoglobin 30.7 pg (28.0-34.0); Mean Corpuscular Volume 89.1 fl (80-94); Mean Platelet Volume 8.8 fL (7.4-10.4); Monocytes # 0.7 10^3/uL (0.2-0.9); Monocytes % 11.3 %; Neutrophils # 4.94 10^3/uL (1.8-7.7); Neutrophils % 75.3 %; Nucleated Red Blood Cells % 0 %; Platelet Count 367 10^3/cmm (130-400); Red Blood Count 4.23 10^6/uL (4.1-5.3); White Blood Count 6.6 10^3/uL (4.0-10.0)
== END 2023-05-25 23:59 | disposition home or self-care (01) ==
PROVIDERS: PCP Nurse Practitioner Family; Visit Provider Internal Medicine Medical Oncology
DX: C91.10 Chronic lymphocytic leukemia of B-cell type not having achieved remission (principal)
CPT/HCPCS: 36415; 80053; 83615; 85025; 96375; 96413; 96415; J1200; J2930; J7040; J9312

== ENCOUNTER → 2023-05-22 08:53 | Outpatient (BNVA) | payer BC, SELFPAY | PROVIDERS: PCP Nurse Practitioner Family; Visit Provider Internal Medicine Medical Oncology | DX: C91.10 Chronic lymphocytic leukemia of B-cell type not having achieved remission (principal) | CPT/HCPCS: 85025 ==

== ENCOUNTER → 2023-05-30 08:19 | Outpatient (BNVA) | payer BC, SELFPAY | PROVIDERS: PCP Nurse Practitioner Family; Visit Provider Internal Medicine Medical Oncology | DX: C91.10 Chronic lymphocytic leukemia of B-cell type not having achieved remission (principal) | CPT/HCPCS: 85025 ==

== ENCOUNTER 2023-06-05 08:13 | Oncology outpatient (recurring) (ONCR) | payer BC, SELFPAY ==
[2023-06-05 08:27] VITALS: BMI 29.0
[2023-06-05 08:28] VITALS: BP 136/85; PULSE 80; RESP 18; TEMP 36.2; O2SAT 96
[2023-06-05 08:50] LABS: Basophils % 0.4 %; Hematocrit 38.5 % (37-53); Lymphocytes # 0.8 10^3/uL (0.8-4.8); Mean Corpuscular HGB Conc 33.5 g/dL (30-55); Mean Corpuscular Hemoglobin 30.3 pg (27-33); Mean Corpuscular Volume 90.4 fl (82-101); Mean Platelet Volume 8.8 fL (7.4-10.4); Monocytes # 0.7 10^3/uL (0.2-0.9); Monocytes % 14.5 %; Neutrophils # 2.99 10^3/uL (1.8-7.7); Neutrophils % 66.7 %; Nucleated Red Blood Cells % 0 %; Platelet Count 185 10^3/cmm (157-399); Red Blood Count 4.26 10^6/uL (3.85-5.65); Red Cell Distribution Width 14.6 % (12.1-15.1); White Blood Count 4.49 10^3/uL (3.29-11.43)
[2023-06-05 09:09] LABS: Alanine Aminotransferase 34 U/L (0-41); Albumin Level 4.4 g/dL (3.5-5.2); Alkaline Phosphatase 82 U/L (40-130); Aspartate Amino Transferase 30 U/L (0-40); Blood Urea Nitrogen 18 mg/dL (8-23); Carbon Dioxide 26 mmol/L (22-29); Chloride 103 mmol/L (98-107); Globulin 2.2 g/dL (1.3-4.6); Glomerular Filtration Rate 85.5 mL/min (90-130); Glucose 103 mg/dL (65-115); Lactate Dehydrogenase 164 U/L (135-225); Osmolality Calculated 292 mOsm/kg (285-295); Sodium 140 mmol/L (136-145); Total Bilirubin 0.6 mg/dL (0.15-1.2); Total Protein 6.6 g/dL (6.6-8.7)
[2023-06-05 09:35] VITALS: BP 136/85; PULSE 80; RESP 18; TEMP 36.2; O2SAT 96
[2023-06-05] MEDS: sodium chloride 0.9% 500 ML 75 ML IV (10:13)
[2023-06-05] MEDS: acetaminophen 325 mg Tablet 650 MG PO (10:14)
[2023-06-05] MEDS: diphenhydrAMINE 50 mg/mL SDV 1mL 25 MG IVP (10:15)
[2023-06-05] MEDS: rituximab 1,000 MG in sodium chloride 0.9% 500 ML 60 MG IV (10:34)
[2023-06-05 11:05] VITALS: BP 143/87; PULSE 67; RESP 18; TEMP 36.1; O2SAT 98
[2023-06-05 11:35] VITALS: BP 121/78; PULSE 95; RESP 16; TEMP 36.4; O2SAT 96
[2023-06-05 12:05] VITALS: BP 121/74; PULSE 91; RESP 16; TEMP 35.8; O2SAT 92
[2023-06-05 14:12] VITALS: BP 123/81; PULSE 72; RESP 16; TEMP 36.1; O2SAT 96
== END 2023-06-24 23:59 | disposition home or self-care (01) ==
PROVIDERS: PCP Nurse Practitioner Family; Visit Provider Internal Medicine Medical Oncology
DX: C91.10 Chronic lymphocytic leukemia of B-cell type not having achieved remission (principal); Z51.12 Encounter for antineoplastic immunotherapy
CPT/HCPCS: 80053; 83615; 85025; 96375; 96413; 96415; J1200; J7040; J9312

== ENCOUNTER 2023-06-13 15:05 | Outpatient (CLI) | payer BC, SELFPAY ==
--- NOTE | 2023-06-13 15:11 | XR_ITS ---
WS: [id number] XR hip LT 2-3V wo/w pel* [id number] REASON FOR EXAM: M25.552 - Pain in left hip FINDINGS: No fracture or focal bone lesion. Mild to moderate narrowing of the joint space with mild to moderate subchondral sclerosis of the acet abulum. No soft tissue abnormality. 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
--- NOTE | 2023-06-13 15:15 | MR_ITS ---
WS: [id number] MRI LUMBAR SPINE NONCONTRAST HISTORY: Low back pain radiating down LEFT leg and hip. COMPARISON: None available. TECHNIQUE: Sagittal and axial multisequence imaging is submitted. Very slight anterolisthesis of L5 by 2 mm. No fractures or marrow edema. Mild disc space narrowing and desiccation at L4-5 and L5-S1. Conus terminates normally at L1. L1-L2: Normal. L2-L3: Mild facet and ligamentum flavum hypertrophy. No stenosis. L3-L4: Mild ligamentum flavum and facet arthritis. Mild encroachment upon the LEFT subarticular reces s. There is mild contact on the LEFT traversing L4 nerve root. L4-L5: Mild annular disc bulging and osteophytic ridging. Central disc protrusion extends into the schilling barticular recesses contacting the exiting L5 nerve roots. There is a more focal soft tissue mass ext ending into the LEFT subarticular recess below the disc level. This is probably an extruded disc frag ment with contact more significantly on the nerve roots in the LEFT thecal sac. Mild bilateral forami nal stenosis. L5-S1: Mild annular disc bulging. No significant nerve root encroachment. Visualized retroperitoneum is negative. No ascites or adenopathy. IMPRESSION: 1. Increased soft tissue extending into the LEFT L4-5 subarticular recess contacting and displacing t he nerve roots in the thecal sac. Most consistent with an extruded disc fragment extending caudad fro m the disc level. 2. L4-5: Additional central disc protrusion extending into the subarticular recesses. Contact and enc roachment upon the traversing L5 nerve roots. Mild bilateral foraminal stenosis. 3. L3-4: Mild disc encroachment upon the LEFT subarticular recess. Mild contact on the LEFT traversin g L4 nerve root.
== END 2023-06-13 15:06 | disposition home or self-care (01) ==
PROVIDERS: PCP Nurse Practitioner Family; Visit Provider Nurse Practitioner Family
DX: M51.26 Other intervertebral disc displacement, lumbar region (principal); M51.36 Other intervertebral disc degeneration, lumbar region; M54.30 Sciatica, unspecified side; M79.605 Pain in left leg; M25.552 Pain in left hip
CPT/HCPCS: 72148; 73502

== ENCOUNTER → 2023-06-26 12:09 | Outpatient (BNVA) | payer BC, SELFPAY | PROVIDERS: PCP Nurse Practitioner Family; Visit Provider Nurse Practitioner Family | DX: C91.10 Chronic lymphocytic leukemia of B-cell type not having achieved remission (principal) | CPT/HCPCS: 85025 ==

== ENCOUNTER 2023-06-27 16:22 | Outpatient (CLI) | payer BC, SELFPAY ==
--- NOTE | 2023-06-27 16:45 | MR_ITS ---
WS: [id number] MRI LEFT HIP WITHOUT CONTRAST. COMPARISON: 06/13/2023 Multiplanar, multisequence imaging is performed without contrast. No fractures or marrow edema within the bones of the pelvis. SI joints are normal. Very mild narrowin g of LEFT hip joint. No trochanteric bursitis. No joint effusion. No labral tear is identified. No so ft tissue atrophy. Urinary bladder is not distended. Prominent seminal vesicles and seminiferous tubules. No pelvic mass or adenopathy. IMPRESSION: 1. Mild narrowing of the LEFT hip joint. No joint effusion. 2. No marrow edema or fracture.
== END 2023-06-27 16:23 | disposition home or self-care (01) ==
LOC: RAD 16:25
PROVIDERS: PCP Nurse Practitioner Family; Visit Provider Nurse Practitioner Family
DX: M25.552 Pain in left hip (principal); G89.29 Other chronic pain; M16.12 Unilateral primary osteoarthritis, left hip; M25.859 Other specified joint disorders, unspecified hip
CPT/HCPCS: 73721

== ENCOUNTER 2023-07-03 08:09 | Oncology outpatient (recurring) (ONCR) | payer BC, SELFPAY ==
[2023-07-03] VITALS (7 sets, daily range): BP systolic 104–123; BP diastolic 64–80; PULSE 65–89; RESP 16–17; TEMP 36.2–36.5; O2SAT 95–98
[2023-07-03 08:56] LABS: Basophils % 0.3 %; Lymphocytes % 29.9 %; Mean Corpuscular HGB Conc 33.3 g/dL (30-55); Mean Corpuscular Hemoglobin 30.2 pg (27-33); Mean Corpuscular Volume 90.9 fl (82-101); Mean Platelet Volume 9.1 fL (7.4-10.4); Monocytes # 0.9 10^3/uL (0.2-0.9); Monocytes % 27.7 %; Neutrophils # 1.33 10^3/uL (1.8-7.7); Neutrophils % 41.8 %; Nucleated Red Blood Cells % 0 %; Platelet Count 235 10^3/cmm (157-399); Red Cell Distribution Width 14.1 % (12.1-15.1); White Blood Count 3.18 10^3/uL (3.29-11.43)
[2023-07-03 09:36] LABS: Alanine Aminotransferase 25 U/L (0-41); Albumin Level 4.3 g/dL (3.5-5.2); Alkaline Phosphatase 82 U/L (40-130); Anion Gap 11.8 (5-19); Aspartate Amino Transferase 20 U/L (0-40); Blood Urea Nitrogen 17 mg/dL (8-23); Calcium 8.9 mg/dL (8.5-10.5); Carbon Dioxide 27 mmol/L (22-29); Chloride 100 mmol/L (98-107); Globulin 2.5 g/dL (1.3-4.6); Glomerular Filtration Rate 61.3 mL/min (90-130); Glucose 96 mg/dL (65-115); Lactate Dehydrogenase 180 U/L (135-225); Osmolality Calculated 281 mOsm/kg (285-295); Potassium 3.8 mmol/L (3.5-5.1); Sodium 135 mmol/L (136-145); Total Bilirubin 0.4 mg/dL (0.15-1.2); Total Protein 6.8 g/dL (6.6-8.7)
[2023-07-03] MEDS: sodium chloride 0.9% 500 ML 75 ML IV (10:10)
[2023-07-03] MEDS: acetaminophen 325 mg Tablet 650 MG PO (10:22)
[2023-07-03] MEDS: diphenhydrAMINE 50 mg/mL SDV 1mL 25 MG IVP (10:27)
[2023-07-03] MEDS: methylPREDNISolone sod succ 125 mg SDV 60 MG IV (10:32)
== END 2023-07-25 23:59 | disposition home or self-care (01) ==
PROVIDERS: Nurse Practitioner Family; PCP Nurse Practitioner Family; Visit Provider Internal Medicine Medical Oncology
DX: Z51.12 Encounter for antineoplastic immunotherapy (principal); C91.10 Chronic lymphocytic leukemia of B-cell type not having achieved remission
CPT/HCPCS: 80053; 83615; 85025; 96374; 96375; 96413; 96415; J1200; J2930; J7040; J9312

== ENCOUNTER → 2023-07-11 09:09 | Outpatient (BNVA) | payer BC, SELFPAY | PROVIDERS: PCP Nurse Practitioner Family; Visit Provider Internal Medicine Medical Oncology | DX: C91.10 Chronic lymphocytic leukemia of B-cell type not having achieved remission (principal) | CPT/HCPCS: 85025 ==

== ENCOUNTER → 2023-07-18 09:27 | Outpatient (BNVA) | payer BC, SELFPAY | PROVIDERS: PCP Nurse Practitioner Family; Visit Provider Internal Medicine Medical Oncology | DX: C91.10 Chronic lymphocytic leukemia of B-cell type not having achieved remission (principal) | CPT/HCPCS: 85025 ==

== ENCOUNTER → 2023-07-24 08:53 | Outpatient (BNVA) | payer BC, SELFPAY | PROVIDERS: PCP Nurse Practitioner Family; Visit Provider Nurse Practitioner Family | DX: C91.10 Chronic lymphocytic leukemia of B-cell type not having achieved remission (principal) | CPT/HCPCS: 85025 ==

== ENCOUNTER 2023-07-31 08:06 | Oncology outpatient (recurring) (ONCR) | payer BC, SELFPAY ==
[2023-07-31 08:57] LABS: Basophils % 0.3 %; Eosinophils # 0.1 10^3/uL (0.0-0.8); Eosinophils % 4.4 %; Hematocrit 40.3 % (37-53); Lymphocytes # 0.8 10^3/uL (0.8-4.8); Lymphocytes % 23.4 %; Mean Corpuscular Hemoglobin 29.8 pg (27-33); Mean Corpuscular Volume 90.2 fl (82-101); Monocytes # 0.5 10^3/uL (0.2-0.9); Monocytes % 15.3 %; Nucleated Red Blood Cells % 0 %; Platelet Count 194 10^3/cmm (157-399); Red Blood Count 4.47 10^6/uL (3.85-5.65); Red Cell Distribution Width 13.8 % (12.1-15.1); White Blood Count 3.21 10^3/uL (3.29-11.43)
[2023-07-31 09:16] LABS: Alanine Aminotransferase 38 U/L (0-41); Albumin Level 4.5 g/dL (3.5-5.2); Alkaline Phosphatase 80 U/L (40-130); Anion Gap 14.1 (5-19); Aspartate Amino Transferase 27 U/L (0-40); Blood Urea Nitrogen 14 mg/dL (8-23); Calcium 9.3 mg/dL (8.5-10.5); Carbon Dioxide 26 mmol/L (22-29); Chloride 105 mmol/L (98-107); Glomerular Filtration Rate 75.7 mL/min (90-130); Glucose 109 mg/dL (65-115); Lactate Dehydrogenase 192 U/L (135-225); Osmolality Calculated 293 mOsm/kg (285-295); Potassium 4.1 mmol/L (3.5-5.1); Sodium 141 mmol/L (136-145); Total Bilirubin 0.4 mg/dL (0.15-1.2); Total Protein 6.5 g/dL (6.6-8.7)
[2023-07-31] MEDS: acetaminophen 325 mg Tablet 650 MG PO (10:31)
[2023-07-31] MEDS: diphenhydrAMINE 50 mg/mL SDV 1mL 25 MG IVP (10:35)
[2023-07-31] MEDS: methylPREDNISolone sod succ 125 mg SDV 60 MG IV (10:39)
[2023-07-31] MEDS: sodium chloride 0.9% 250 ML 50 ML IV (10:48)
[2023-07-31 11:00] VITALS: BP 122/72; PULSE 73; RESP 16; TEMP 36.4; O2SAT 96
[2023-07-31] MEDS: rituximab 1,000 MG in sodium chloride 0.9% 500 ML 70 MG IV (11:00)
[2023-07-31 11:30] VITALS: BP 121/75; PULSE 74; RESP 17; TEMP 36.7; O2SAT 96
[2023-07-31 12:10] VITALS: BP 115/79; PULSE 75; RESP 16; TEMP 36.2; O2SAT 95
[2023-07-31 12:41] VITALS: BP 120/74; PULSE 76; RESP 17; TEMP 36; O2SAT 95
[2023-07-31 14:25] VITALS: BP 128/85; PULSE 78; RESP 16; TEMP 36; O2SAT 95
== END 2023-08-24 23:59 | disposition home or self-care (01) ==
PROVIDERS: PCP Nurse Practitioner Family; Visit Provider Internal Medicine Medical Oncology
DX: Z51.12 Encounter for antineoplastic immunotherapy (principal); C91.10 Chronic lymphocytic leukemia of B-cell type not having achieved remission; Z79.899 Other long term (current) drug therapy
CPT/HCPCS: 80053; 83615; 85025; 96375; 96413; 96415; J1200; J2930; J7040; J7050; J9312

== ENCOUNTER → 2023-08-08 09:20 | Outpatient (BNVA) | payer BC, SELFPAY | PROVIDERS: PCP Nurse Practitioner Family; Visit Provider Nurse Practitioner Family | DX: C91.10 Chronic lymphocytic leukemia of B-cell type not having achieved remission (principal) | CPT/HCPCS: 85025 ==

== ENCOUNTER → 2023-08-14 09:06 | Outpatient (BNVA) | payer BC, SELFPAY | PROVIDERS: PCP Nurse Practitioner Family; Visit Provider Nurse Practitioner Family | DX: C91.10 Chronic lymphocytic leukemia of B-cell type not having achieved remission (principal) | CPT/HCPCS: 85025 ==

== ENCOUNTER → 2023-08-21 10:15 | Outpatient (BNVA) | payer BC, SELFPAY | PROVIDERS: PCP Nurse Practitioner Family; Visit Provider Nurse Practitioner Family | DX: C91.10 Chronic lymphocytic leukemia of B-cell type not having achieved remission (principal) | CPT/HCPCS: 85025 ==

== ENCOUNTER 2023-09-14 14:30 | Oncology outpatient (recurring) (ONCR) | payer BC, SELFPAY ==
[2023-08-28 08:50] LABS: Basophils % 0.6 %; Eosinophils # 0.1 10^3/uL (0.0-0.8); Eosinophils % 2.6 %; Hematocrit 40.2 % (37-53); Lymphocytes # 0.7 10^3/uL (0.8-4.8); Lymphocytes % 23.7 %; Mean Corpuscular HGB Conc 33.6 g/dL (30-55); Mean Corpuscular Hemoglobin 29.9 pg (27-33); Mean Corpuscular Volume 88.9 fl (82-101); Mean Platelet Volume 9.1 fL (7.4-10.4); Monocytes # 0.5 10^3/uL (0.2-0.9); Monocytes % 15.1 %; Neutrophils # 1.78 10^3/uL (1.8-7.7); Nucleated Red Blood Cells % 0 %; Platelet Count 202 10^3/cmm (157-399); Red Blood Count 4.52 10^6/uL (3.85-5.65); Red Cell Distribution Width 13.8 % (12.1-15.1); White Blood Count 3.12 10^3/uL (3.29-11.43)
[2023-08-28 09:12] LABS: Alanine Aminotransferase 45 U/L (0-41); Albumin Level 4.4 g/dL (3.5-5.2); Alkaline Phosphatase 88 U/L (40-130); Anion Gap 12.7 (5-19); Aspartate Amino Transferase 29 U/L (0-40); Blood Urea Nitrogen 11 mg/dL (8-23); Calcium 9.2 mg/dL (8.5-10.5); Carbon Dioxide 27 mmol/L (22-29); Chloride 102 mmol/L (98-107); Globulin 2.2 g/dL (1.3-4.6); Glomerular Filtration Rate 85.5 mL/min (90-130); Glucose 148 mg/dL (65-115); Lactate Dehydrogenase 175 U/L (135-225); Osmolality Calculated 288 mOsm/kg (285-295); Potassium 3.7 mmol/L (3.5-5.1); Sodium 138 mmol/L (136-145); Total Bilirubin 0.4 mg/dL (0.15-1.2); Total Protein 6.6 g/dL (6.6-8.7)
--- NOTE | 2023-08-28 10:14 | ECG_ITS ---
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 Measurements Intervals [place] Rate: 59 P: 0 [place]: 0 QRS: -12 QRSD: 105 T: 35 QT: 371 QTc: 368 Interpretive Statements SINUS BRADYCARDIA WITH ECTOPIC PREMATURE COMPLEXES Compared to ECG 04/26/2018 09:54:46 Sinus rhythm no longer present Electronically Signed On 08-28-2023 21:31:36 RECRUITING ASSISTANT by Summer Joseph M.D. [email or web address] [id number]
[2023-08-28] MEDS: acetaminophen 325 mg Tablet 650 MG PO (12:00)
[2023-08-28] MEDS: sodium chloride 0.9% 500 ML 75 ML IV (12:00)
[2023-08-28] MEDS: diphenhydrAMINE 50 mg/mL SDV 1mL 25 MG IVP (12:02)
[2023-08-28] MEDS: methylPREDNISolone sod succ 125 mg SDV 60 MG IV (12:15)
[2023-08-28 12:31] VITALS: BP 136/93; PULSE 43; RESP 16; TEMP 36.2; O2SAT 96
[2023-08-28] MEDS: rituximab 1,000 MG in sodium chloride 0.9% 500 ML 70 MG IV (12:31)
[2023-08-28 13:33] VITALS: BP 133/79; PULSE 80; RESP 17; TEMP 36.4; O2SAT 95
[2023-08-28 14:03] VITALS: BP 126/80; PULSE 77; RESP 16; TEMP 36.3; O2SAT 94
[2023-08-28 15:47] VITALS: BP 142/91; PULSE 95; RESP 16; TEMP 36.3; O2SAT 98
--- NOTE | 2023-09-14 14:49 | ECG_ITS ---
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 Measurements Intervals [place] Rate: 88 P: 38 MO: 205 QRS: -26 QRSD: 106 T: 23 QT: 347 QTc: 421 Interpretive Statements SINUS RHYTHM BORDERLINE LEFT AXIS DEVIATION [QRS AXIS < -20] INTERPRETATION BASED ON A DEFAULT AGE OF 40 YEARS Compared to ECG 08/28/2023 10:29:36 Sinus bradycardia no longer present Electronically Signed On 09-15-2023 19:16:58 STATE FARM AGENT by Terri Manzano M.D. [id number]
== END 2023-09-24 23:59 | disposition home or self-care (01) ==
PROVIDERS: Nurse Practitioner Family; PCP Nurse Practitioner Family; Visit Provider Internal Medicine Medical Oncology
DX: C91.10 Chronic lymphocytic leukemia of B-cell type not having achieved remission; Z53.9 Procedure and treatment not carried out, unspecified reason
CPT/HCPCS: 80053; 83615; 85025; 93005; 96375; 96413; 96415; J1200; J2930; J7040; J9312

== ENCOUNTER → 2023-10-03 09:53 | Outpatient (BNVA) | payer BC, SELFPAY | PROVIDERS: PCP Nurse Practitioner Family; Visit Provider Internal Medicine Medical Oncology | DX: C91.10 Chronic lymphocytic leukemia of B-cell type not having achieved remission (principal) | CPT/HCPCS: 85025 ==

== ENCOUNTER → 2023-10-30 10:03 | Outpatient (BNVA) | payer BC, SELFPAY | PROVIDERS: PCP Nurse Practitioner Family; Visit Provider Internal Medicine Medical Oncology | DX: C91.10 Chronic lymphocytic leukemia of B-cell type not having achieved remission (principal) | CPT/HCPCS: 85025 ==

== ENCOUNTER 2023-11-27 08:15 | Oncology outpatient (recurring) (ONCR) | payer BC, SELFPAY ==
[2023-11-27 08:41] LABS: Basophils % 0.4 %; Eosinophils # 0.1 10^3/uL (0.0-0.8); Eosinophils % 1.1 %; Hematocrit 42.3 % (37-53); Lymphocytes % 17.7 %; Mean Corpuscular HGB Conc 32.9 g/dL (30-55); Mean Corpuscular Hemoglobin 29.7 pg (27-33); Mean Corpuscular Volume 90.4 fl (82-101); Mean Platelet Volume 8.8 fL (7.4-10.4); Monocytes # 0.7 10^3/uL (0.2-0.9); Monocytes % 12.3 %; Neutrophils # 3.77 10^3/uL (1.8-7.7); Neutrophils % 68.1 %; Nucleated Red Blood Cells % 0 %; Platelet Count 312 10^3/cmm (157-399); Red Blood Count 4.68 10^6/uL (3.85-5.65); Red Cell Distribution Width 13.2 % (12.1-15.1); White Blood Count 5.53 10^3/uL (3.29-11.43)
[2023-11-27 09:23] LABS: Alanine Aminotransferase 48 U/L (0-41); Albumin Level 4.3 g/dL (3.5-5.2); Alkaline Phosphatase 191 U/L (40-130); Anion Gap 15.3 (5-19); Aspartate Amino Transferase 31 U/L (0-40); Blood Urea Nitrogen 17 mg/dL (8-23); Calcium 9.1 mg/dL (8.5-10.5); Carbon Dioxide 27 mmol/L (22-29); Chloride 100 mmol/L (98-107); Creatinine Clr Calc Pharmacy 77.3337; Globulin 3.1 g/dL (1.3-4.6); Glomerular Filtration Rate 67.6 mL/min (90-130); Glucose 126 mg/dL (65-115); Osmolality Calculated 289 mOsm/kg (285-295); Potassium 4.3 mmol/L (3.5-5.1); Sodium 138 mmol/L (136-145); Total Bilirubin 0.3 mg/dL (0.15-1.2); Total Protein 7.4 g/dL (6.6-8.7)
== END 2023-12-24 23:59 | disposition home or self-care (01) ==
LOC: ONCMED 08:16
PROVIDERS: PCP Nurse Practitioner Family; Visit Provider Internal Medicine Medical Oncology
DX: C91.10 Chronic lymphocytic leukemia of B-cell type not having achieved remission (principal)
CPT/HCPCS: 36415; 80053; 85025

== ENCOUNTER → 2023-12-26 08:34 | Outpatient (BNVA) | payer BC, SELFPAY | PROVIDERS: PCP Nurse Practitioner Family; Visit Provider Internal Medicine Medical Oncology | DX: C91.10 Chronic lymphocytic leukemia of B-cell type not having achieved remission (principal) | CPT/HCPCS: 85025 ==

== ENCOUNTER → 2024-01-26 09:07 | Outpatient (BNVA) | payer BC, SELFPAY | PROVIDERS: PCP Nurse Practitioner Family; Visit Provider Internal Medicine Medical Oncology | DX: C91.10 Chronic lymphocytic leukemia of B-cell type not having achieved remission (principal) | CPT/HCPCS: 85025 ==

== ENCOUNTER 2024-02-20 08:39 | Oncology outpatient (recurring) (ONCR) | payer BC, SELFPAY ==
[2024-02-20 09:01] LABS: Basophils % 0.8 %; Eosinophils # 0.2 10^3/uL (0.0-0.8); Eosinophils % 4.6 %; Lymphocytes # 0.9 10^3/uL (0.8-4.8); Lymphocytes % 22.8 %; Mean Corpuscular HGB Conc 33.3 g/dL (30-55); Mean Corpuscular Hemoglobin 30.2 pg (27-33); Mean Corpuscular Volume 90.7 fl (82-101); Mean Platelet Volume 8.3 fL (7.4-10.4); Monocytes # 0.5 10^3/uL (0.2-0.9); Monocytes % 12.9 %; Neutrophils # 2.18 10^3/uL (1.8-7.7); Neutrophils % 58.4 %; Nucleated Red Blood Cells % 0 %; Platelet Count 250 10^3/cmm (157-399); Red Blood Count 4.41 10^6/uL (3.85-5.65); Red Cell Distribution Width 13.7 % (12.1-15.1); White Blood Count 3.73 10^3/uL (3.29-11.43)
[2024-02-20 09:17] LABS: Alanine Aminotransferase 66 U/L (0-41); Albumin Level 4.1 g/dL (3.5-5.2); Alkaline Phosphatase 154 U/L (40-130); Anion Gap 13.2 (5-19); Aspartate Amino Transferase 29 U/L (0-40); Blood Urea Nitrogen 15 mg/dL (8-23); Carbon Dioxide 28 mmol/L (22-29); Chloride 102 mmol/L (98-107); Creatinine Clr Calc Pharmacy 95.9201; Globulin 3.1 g/dL (1.3-4.6); Glomerular Filtration Rate 85.2 mL/min (90-130); Glucose 107 mg/dL (65-115); Lactate Dehydrogenase 165 U/L (135-225); Osmolality Calculated 289 mOsm/kg (285-295); Potassium 4.2 mmol/L (3.5-5.1); Sodium 139 mmol/L (136-145); Total Bilirubin 0.3 mg/dL (0.15-1.2); Total Protein 7.2 g/dL (6.6-8.7)
[2024-02-20 10:23] LABS: Thyroid Stimulating Hormone 1.23 uIU/mL (0.27-4.20)
[2024-02-22 10:14] LABS: Vitamin B12 401 pg/mL (232-1245)
== END 2024-02-23 23:59 | disposition home or self-care (01) ==
PROVIDERS: PCP Nurse Practitioner Family; Visit Provider Internal Medicine Medical Oncology
DX: C91.10 Chronic lymphocytic leukemia of B-cell type not having achieved remission (principal)
CPT/HCPCS: 36415; 80053; 82607; 83615; 84443; 85025

== ENCOUNTER 2024-02-27 09:26 | Outpatient (CLI) | payer BC, SELFPAY ==
--- NOTE | 2024-02-27 08:30 | PETR_ITS ---
PROCEDURE INFORMATION: Exam: PET/CT Skull Base to Mid-thigh Exam date and time: 02/27/2024 8:57 AM Age: 63 years old Clinical indication: Condition or disease; Condition/disease: Ccl; Patient HX: Abnormal bloowork per patient; Additional info: Restaging cll LABS AND CLINICAL REPORTS: Glucose: 112 mg/dl Treatment strategy for malignancy (PET staging): Restaging (PS) TECHNIQUE: Imaging protocol: Following at least four-hour fasting and following the injection of radiopharmaceutical, low dose CT images were obtained. Then, PET images were obtained. Attenuation corrected images were constructed using the CT scan. Fused images of PET and CT were reviewed. The standardized uptake values (SUV) reported below are maximum values within a region of interest, expressed in gm/ml. Exam includes orbital meatal line to mid-thigh. Radiopharmaceutical: 13.41 mCi F-18 FDG (Fluorodeoxyglucose), IV. Time of imaging post radiopharmaceutical administration: 1 hour Injection site: Right antecubital COMPARISON: [facility] INIT[facility] [id number] 01/21/2023 1:04 PM FINDINGS: Brain: Visualized brain has normal physiologic uptake. Paranasal sinuses: Ovoid lobulated mucosal thickening in the right maxillary sinus is noted without elevated uptake compatible with a mucous retention cyst or polyp. Pharynx: There is physiologic appearing uptake in the region of the soft palate, with no evidence of a correlating mash on the CT images. Larynx: No abnormal uptake. Lungs, pleura and trachea: No abnormal uptake. Heart: Normal physiologic uptake. Mediastinal space: No abnormal uptake. Liver: No abnormal uptake. Diffuse hypodensity of the liver is noted consistent with fatty infiltration. Gallbladder and bile ducts: No abnormal uptake. Pancreas: No abnormal uptake. Spleen: Previously noted splenomegaly and abnormal uptake in the spleen has resolved. No discrete splenic lesions are identified. Splenic uptake: SUV max 2.2, SUV mean 1.0 Adrenal glands: No abnormal uptake. Kidneys and ureters: Normal physiologic uptake. Stomach and bowel: No abnormal uptake. A surgical staple line in the region of the cecum is noted likely related to appendectomy.There are scattered colonic diverticula. Vasculature: No abnormal uptake. There are diffuse atherosclerotic calcifications including within the coronary arteries. Lymph nodes: No radiotracer avid lymph nodes are identified. Previously noted enlarged bilateral cervical chain lymph nodes are no longer enlarged. For example a previously noted right-sided level 3 lymph node currently measures 3 mm (previously 1.6 cm) on series 3, image 50. Previously noted bilateral axillary and mediastinal lymph nodes are no longer enlarged. For example, a 3-4 mm lymph node on the current study (previously measuring 1.6 x 1.1 cm) is present on series 3, image 70. A right paratracheal lymph node measures 1.2 x 0.3 cm on series 3, image 76 (previously measuring 2.4 x 1.4 cm). Previously noted periportal lymph nodes are no longer pathologically enlarged. Mild mid abdominal mesenteric fat stranding is noted, associated with mildly prominent non radiotracer avid lymph nodes which have significantly decreased in size, currently measuring up to 2.5 x 0.8 cm (previously 7.2 x 3.7 cm) on series 3, image 156. Previously noted prominent retroperitoneal abdominal lymph nodes and prominent pelvic and left inguinal lymph nodes are no longer enlarged. A previously noted hypermetabolic left inguinal lymph node for example currently measures 8-9 mm (previously 1.4 cm) on series 3, image 244. Skeleton: No abnormal uptake in the visualized axial and appendicular skeleton. There is mild diffuse vertebral body spondylosis. Soft tissues: No abnormal uptake in the visualized head, neck, chest, abdomen, pelvis, and extremities. METRICS: Mediastinal blood pool: SUV max 2.6 Liver uptake: SUV max 3.3, SUV mean 2.3 [facility] [id number] IMPRESSION: 1. Findings are consistent with an excellent response to therapy. No hypermetabolic lymph nodes are currently identified and there has been extensive interval decrease in the size of previously noted lymphadenopathy in the neck, chest, abdomen and pelvis. 2. Previously noted splenomegaly has resolved and previously noted abnormal uptake in the spleen is no longer identified. 3. Hepatic steatosis. 4. Additional nonurgent findings as detailed above. Deauville Scorin: No uptake 2: Uptake < or = mediastinal blood pool (max SUV) 3: Uptake > mediastinal blood pool (max SUV) but < or = liver (max SUV) 4: Uptake moderately higher than liver (uptake > maximum SUV of the liver) 5: Uptake markedly higher than liver (uptake 2-3x > maximum SUV of the liver) and/or new lesions
== END 2024-02-27 09:27 | disposition home or self-care (01) ==
LOC: RAD 09:27
PROVIDERS: PCP Nurse Practitioner Family; Visit Provider Internal Medicine Medical Oncology
DX: C91.10 Chronic lymphocytic leukemia of B-cell type not having achieved remission (principal); K76.0 Fatty (change of) liver, not elsewhere classified; J32.0 Chronic maxillary sinusitis
CPT/HCPCS: 78815; A9552

== ENCOUNTER → 2024-03-25 09:29 | Outpatient (BNVA) | payer BC, SELFPAY | PROVIDERS: PCP Nurse Practitioner Family; Visit Provider Internal Medicine Medical Oncology | DX: C91.10 Chronic lymphocytic leukemia of B-cell type not having achieved remission (principal) | CPT/HCPCS: 80053; 83615; 85025 ==

== ENCOUNTER → 2024-04-26 09:23 | Outpatient (BNVA) | payer BC, SELFPAY | PROVIDERS: PCP Nurse Practitioner Family; Visit Provider Internal Medicine Medical Oncology | DX: C91.10 Chronic lymphocytic leukemia of B-cell type not having achieved remission (principal); I10 Essential (primary) hypertension | CPT/HCPCS: 80053; 83615; 85025 ==

== ENCOUNTER 2024-05-21 07:34 | Oncology outpatient (recurring) (ONCR) | payer BC, SELFPAY ==
[2024-05-21 07:55] LABS: Basophils % 0.2 %; Eosinophils # 0.1 10^3/uL (0.0-0.8); Eosinophils % 2.4 %; Hematocrit 40.8 % (37-53); Lymphocytes # 0.8 10^3/uL (0.8-4.8); Lymphocytes % 18.3 %; Mean Corpuscular HGB Conc 33.1 g/dL (30-55); Mean Corpuscular Volume 93.6 fl (82-101); Mean Platelet Volume 8.6 fL (7.4-10.4); Monocytes # 0.6 10^3/uL (0.2-0.9); Monocytes % 15.6 %; Neutrophils # 2.58 10^3/uL (1.8-7.7); Nucleated Red Blood Cells % 0 %; Platelet Count 184 10^3/cmm (157-399); Red Blood Count 4.36 10^6/uL (3.85-5.65); Red Cell Distribution Width 14.2 % (12.1-15.1)
[2024-05-21 08:18] LABS: Alanine Aminotransferase 46 U/L (0-41); Albumin Level 4.4 g/dL (3.5-5.2); Alkaline Phosphatase 107 U/L (40-130); Anion Gap 15.1 (5-19); Aspartate Amino Transferase 30 U/L (0-40); Blood Urea Nitrogen 22 mg/dL (8-23); Calcium 8.9 mg/dL (8.5-10.5); Carbon Dioxide 25 mmol/L (22-29); Chloride 107 mmol/L (98-107); Globulin 2.2 g/dL (1.3-4.6); Glomerular Filtration Rate 75.5 mL/min (90-130); Glucose 112 mg/dL (65-115); Lactate Dehydrogenase 161 U/L (135-225); Osmolality Calculated 300 mOsm/kg (285-295); Potassium 4.1 mmol/L (3.5-5.1); Sodium 143 mmol/L (136-145); Total Bilirubin 0.3 mg/dL (0.15-1.2); Total Protein 6.6 g/dL (6.6-8.7)
== END 2024-05-25 23:59 | disposition home or self-care (01) ==
PROVIDERS: PCP Nurse Practitioner Family; Visit Provider Internal Medicine Medical Oncology
DX: C91.10 Chronic lymphocytic leukemia of B-cell type not having achieved remission (principal); Z79.899 Other long term (current) drug therapy; I49.9 Cardiac arrhythmia, unspecified
CPT/HCPCS: 36415; 80053; 83615; 85025

== ENCOUNTER → 2024-06-26 11:08 | Outpatient (BNVA) | payer BC, SELFPAY | PROVIDERS: PCP Nurse Practitioner Family; Visit Provider Internal Medicine Medical Oncology | DX: C91.10 Chronic lymphocytic leukemia of B-cell type not having achieved remission (principal) | CPT/HCPCS: 80053; 83615; 85025 ==

== ENCOUNTER → 2024-08-06 08:15 | Outpatient (BNVA) | payer BC, SELFPAY | PROVIDERS: PCP Nurse Practitioner Family; Visit Provider Nurse Practitioner Family | DX: C91.10 Chronic lymphocytic leukemia of B-cell type not having achieved remission (principal) | CPT/HCPCS: 80053; 83615; 85025 ==

== ENCOUNTER 2024-09-23 07:30 | Oncology outpatient (recurring) (ONCR) | payer BC, SELFPAY ==
[2024-08-26 08:05] LABS: Basophils % 0.5 %; Eosinophils # 0.1 10^3/uL (0.0-0.8); Eosinophils % 3.1 %; Hematocrit 42.4 % (37-53); Lymphocytes % 25.1 %; Mean Corpuscular HGB Conc 33.7 g/dL (30-55); Mean Corpuscular Hemoglobin 30.4 pg (27-33); Mean Platelet Volume 8.5 fL (7.4-10.4); Monocytes # 0.7 10^3/uL (0.2-0.9); Monocytes % 17.4 %; Neutrophils # 2.09 10^3/uL (1.8-7.7); Neutrophils % 53.4 %; Nucleated Red Blood Cells % 0 %; Platelet Count 191 10^3/cmm (157-399); Red Blood Count 4.71 10^6/uL (3.85-5.65); Red Cell Distribution Width 13.1 % (12.1-15.1); White Blood Count 3.91 10^3/uL (3.29-11.43)
[2024-08-26 08:32] LABS: Carcinoembryonic Antigen 2.6 ng/mL (0.0-4.7)
[2024-08-26 08:43] LABS: Alanine Aminotransferase 44 U/L (0-41); Albumin Level 4.3 g/dL (3.5-5.2); Alkaline Phosphatase 114 U/L (40-130); Anion Gap 16.9 (5-19); Aspartate Amino Transferase 33 U/L (0-40); Blood Urea Nitrogen 20 mg/dL (8-23); Calcium 9.3 mg/dL (8.5-10.5); Carbon Dioxide 25 mmol/L (22-29); Chloride 101 mmol/L (98-107); Creatinine Clr Calc Pharmacy 78.0391; Globulin 2.3 g/dL (1.3-4.6); Glomerular Filtration Rate 67.6 mL/min (90-130); Glucose 117 mg/dL (65-115); Osmolality Calculated 292 mOsm/kg (285-295); Potassium 3.9 mmol/L (3.5-5.1); Sodium 139 mmol/L (136-145); Total Bilirubin 0.5 mg/dL (0.15-1.2); Total Protein 6.6 g/dL (6.6-8.7)
--- NOTE | 2024-09-06 13:00 | PETR_ITS ---
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 Then, PET images were obtained. Attenuation corrected images were constructed using the CT scan. Fused images of PET and CT were reviewed. The standardized uptake values (SUV) reported below are maximum values within a region of interest, expressed in gm/ml. Exam includes orbital meatal line to mid-thigh. SUV normalization method: BodyWeight Radiopharmaceutical: 11.63 mCi F-18 FDG (Fluorodeoxyglucose), IV. Time of imaging post radiopharmaceutical administration: 49 minutes Injection site: right ac COMPARISON: PT PET skulltothi INITIAL [id number] 02/27/2024 8:57 AM FINDINGS: Brain: Visualized brain has normal physiologic uptake. Paranasal sinuses: Small non FDG-avid right maxillary sinus mucous retention cyst. Otherwise clear. Pharynx: No abnormal uptake. Larynx: No abnormal uptake. Lungs, pleura and trachea: No abnormal uptake. Mild dependent atelectasis. Heart: Normal physiologic uptake. Coronary arteries: Mild coronary artery calcification. Mediastinal space: No abnormal uptake. Liver: No abnormal uptake. Diffusely decreased attenuation compatible with steatosis. Gallbladder and biliary ducts: No abnormal uptake. Pancreas: No abnormal uptake. Spleen: No abnormal uptake. No splenomegaly. SUV max 2.2, SUV mean 1.9 Adrenal glands: No abnormal uptake. Kidneys and ureters: Normal physiologic uptake. Stomach and bowel: No abnormal uptake. Suspect prior appendectomy. Colonic diverticulosis without findings of diverticulitis. Vasculature: No abnormal uptake. Mild systemic atherosclerotic calcification without aortic aneurysm. Lymph nodes: No abnormal uptake. No lymphadenopathy in the head, neck, chest, abdomen, pelvis, and extremities. Stable subtle jejunal mesenteric graying without enlarged or FDG avid lymphadenopathy, index node measures 7 mm in the short axis on axial image 169 with SUV max 1.1. Skeleton: No abnormal uptake in the visualized axial and appendicular skeleton. Soft tissues: No abnormal uptake in the visualized head, neck, chest, abdomen, pelvis, and extremities. METRICS: Mediastinal blood pool: SUV mean 2.0, SUV max 2.4 Liver uptake: SUV mean 2.3, SUV max 2.8 PET/PET skull to thigh SUBS [id number] IMPRESSION: 1. Complete response, Deauville 2. 2. Stable mild jejunal mesenteric graying without suspicious features. 3. Hepatic steatosis.
[2024-09-23 08:11] LABS: Basophils % 0.2 %; Eosinophils # 0.1 10^3/uL (0.0-0.8); Eosinophils % 2.8 %; Hematocrit 42.2 % (37-53); Lymphocytes # 1.1 10^3/uL (0.8-4.8); Lymphocytes % 22.7 %; Mean Corpuscular HGB Conc 33.4 g/dL (30-55); Mean Corpuscular Hemoglobin 30.3 pg (27-33); Mean Corpuscular Volume 90.6 fl (82-101); Mean Platelet Volume 8.7 fL (7.4-10.4); Monocytes # 0.8 10^3/uL (0.2-0.9); Monocytes % 16.6 %; Neutrophils # 2.69 10^3/uL (1.8-7.7); Neutrophils % 57.1 %; Nucleated Red Blood Cells % 0 %; Platelet Count 230 10^3/cmm (157-399); Red Blood Count 4.66 10^6/uL (3.85-5.65); Red Cell Distribution Width 13.3 % (12.1-15.1); White Blood Count 4.71 10^3/uL (3.29-11.43)
[2024-09-23 08:35] LABS: Alanine Aminotransferase 42 U/L (0-41); Albumin Level 4.1 g/dL (3.5-5.2); Alkaline Phosphatase 139 U/L (40-130); Aspartate Amino Transferase 32 U/L (0-40); Blood Urea Nitrogen 13 mg/dL (8-23); Calcium 9.5 mg/dL (8.5-10.5); Carbon Dioxide 25 mmol/L (22-29); Chloride 101 mmol/L (98-107); Creatinine Clr Calc Pharmacy 83.7706; Glomerular Filtration Rate 75.2 mL/min (90-130); Glucose 124 mg/dL (65-115); Osmolality Calculated 286 mOsm/kg (285-295); Sodium 137 mmol/L (136-145); Total Bilirubin 0.4 mg/dL (0.15-1.2); Total Protein 7.1 g/dL (6.6-8.7)
== END 2024-09-24 23:59 | disposition home or self-care (01) ==
PROVIDERS: Nurse Practitioner Family; PCP Nurse Practitioner Family; Visit Provider Internal Medicine Medical Oncology
DX: C91.10 Chronic lymphocytic leukemia of B-cell type not having achieved remission (principal); Z53.9 Procedure and treatment not carried out, unspecified reason
CPT/HCPCS: 36415; 78815; 80053; 82378; 85025; A9552

== ENCOUNTER 2024-10-01 02:48 | Emergency (ER) | payer BC, SELFPAY ==
[2024-10-01] VITALS (12 sets, daily range): BP systolic 129–202; BP diastolic 84–102; PULSE 71–93; RESP 17–27; TEMP 36.7; O2SAT 93–95; BMI 27.9
--- NOTE | 2024-10-01 02:51 | ECG_ITS ---
[facility] Test Date: 2024-10-01 Pat Name: Italo Barrios Department: Room: Gender: Male Jet Man: : 1960 Requested By: Linda Ann Order Number: [id number] Brenda MD: Lee Rehman M.D. Measurements Intervals [place] Rate: 84 P: 50 VA: 213 QRS: 66 QRSD: 106 T: -6 QT: 349 QTc: 413 Interpretive Statements SINUS RHYTHM WITH FIRST DEGREE AV BLOCK POSSIBLE ANTERIOR MYOCARDIAL INFARCTION , PROBABLY OLD [30 ms Q WAVE IN V3/V4, OR R < 0.2 mV IN V4] Compared to ECG 09/14/2023 14:49:37 First degree AV block now present Myocardial infarct finding now present Electronically Signed On 10-01-2024 21:15:30 BALANCER by Lee Rehman M.D. [id number]
--- NOTE | 2024-10-01 02:55 | XRR_ITS ---
PROCEDURE INFORMATION: Exam: XR Chest Exam date and time: 10/01/2024 2:58 AM Age: 64 years old Clinical indication: Pain; Chest pressure; Additional info: Chest pain TECHNIQUE: Imaging protocol: Radiologic exam of the chest. Views: 1 view. COMPARISON: CR XR chest 2V* [id number] 10/19/2018 10:07 AM FINDINGS: Lungs: Unremarkable. No consolidation. Pleural spaces: Unremarkable. No pleural effusion. No pneumothorax. Heart/Mediastinum: Unremarkable. Stable cardiomegaly. Bones/joints: Unremarkable. XR/XR chest 1V portable [id number] IMPRESSION: No acute findings.
--- NOTE | 2024-10-01 03:00 | W.ED.CHESTPA ---
Documented by User: Linda Zimmerman MD 10/01/24 05:41 HPI - Chest Pain General: Chief Complaint: Chest Pain Stated Complaint: Chest Pains Time Seen by Provider: 10/01/24 02:50 History of Present Illness: 64-year-old man with a history of CLL in remission, hyperlipidemia and hypertension who presents emergency room chest pain. He says it awoke him from sleep about 1:00. He said when he went to bed he thought he had some indigestion. Pain is central chest and radiates into his neck. No nausea or vomiting. He is had a cough for about 3 weeks he says. No shortness of breath. No lower extremity swelling. No calf pain. He is hypertensive on presentation. No altered mental status. No focal motor deficits. No headache. Related Data Home Medications Medication Instructions Recorded Confirmed cyclobenzaprine 10 mg tablet mg PO 11/27/23 09/23/24 fluorouracil 5 % topical cream applic topical 05/21/24 09/23/24 tadalafil 5 mg tablet mg PO 08/26/24 09/23/24 Previous Rx's Medication Instructions Recorded pravastatin 40 mg tablet 40 mg PO DAILY 90 days #90 tabs 03/01/23 lisinopril 20 1 tab PO DAILY 90 days #90 tabs 02/12/24 mg-hydrochlorothiazide 25 mg tablet triamcinolone acetonide 0.1 % 1 applic topical BID #15 grams 02/23/24 topical cream permethrin 5 % topical cream 1 applic topical Q14D 2 doses #60 03/06/24 grams pantoprazole 40 mg tablet,delayed 40 mg PO DAILY 90 days #90 tabs 07/03/24 release allopurinol 300 mg tablet 300 mg .Route DAILY #30 tabs 07/10/24 venetoclax 100 mg tablet See Rx Instructions .Route 09/05/24 (Venclexta) .COMPLEX #60 tabs levofloxacin 750 mg tablet 750 mg PO DAILY 7 days #7 tabs 10/01/24 Allergies Allergy/AdvReac Type Severity Reaction Status Date / Time Penicillins Allergy Unknown Verified 10/01/24 02:56 Review of Systems Narrative: Constitutional symptoms: Negative except as documented in HPI. Skin symptoms: Negative except as documented in HPI. Eye symptoms: Negative except as documented in HPI. ENMT symptoms: Negative except as documented in HPI. Respiratory symptoms: Negative except as documented in HPI. Cardiovascular symptoms: Negative except as documented in HPI. Gastrointestinal symptoms: Negative except as documented in HPI. Genitourinary symptoms: Negative except as documented in HPI. Musculoskeletal symptoms: Negative except as documented in HPI. Neurologic symptoms: Negative except as documented in HPI. Psychiatric symptoms: Negative except as documented in HPI. Endocrine symptoms: Negative except as documented in HPI. PFSH ED PFSH: Medical History Chronic lymphocytic leukemia History of colonic polyps Gout of left foot Gastric reflux Mixed hyperlipidemia Essential (primary) hypertension Surgical History Status post surgical removal of malignant neoplasm of skin History of lumbar laminectomy (11/16/23) History of lymph node biopsy (08/28/17) Left inguinal lymph node biopsy Status post cecostomy Laparoscopic partial cecectomy 06/06/2018 Family History Other Hypertension Denies family history of Bleeding disorder Social History Smoking and tobacco/nicotine status: unknown if used tobacco/nicotine Second hand smoke exposure: No Alcohol intake: never Substance/Drug Use: never Adopted: No Caregiver/support person: No Lives independently: Yes Household members: spouse Housing: House Marital status: Current occupational status: employed 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 Skin: Warm, dry. Head: Normocephalic, atraumatic. Neck: Supple, trachea midline. Eye: Extraocular movements are intact. Ears, nose, mouth and throat: mucosa moist. Cardiovascular: Regular, Normal peripheral perfusion. Respiratory: Lungs are clear to auscultation, respirations are non-labored, breath sounds are equal, Symmetrical chest wall expansion. Gastrointestinal: Soft, Nontender, Non distended Musculoskeletal: Normal ROM, no deformity. Neurological: Alert and oriented, No focal neurological deficit observed. Psychiatric: Cooperative, appropriate mood & affect. Course Vital Signs: Vital signs: Vital Signs Temperature 98.1 F 10/01/24 02:52 Pulse Rate 71 10/01/24 06:15 Respiratory Rate 20 H 10/01/24 06:15 Blood Pressure 149/96 10/01/24 06:15 Pulse Oximetry 93 10/01/24 06:15 Oxygen Delivery Me thod Room Air 10/01/24 05:33 MDM - Chest Pain Medical Decision Making Differential diagnosis for patient with chest pain includes but is not limited to and based on the above HPI, review of systems and physical exam: Pneumonia. unstable angina. angina. Acute coronary syndrome / GA. Pulmonary embolism. Costochondritis / musculoskeletal. Pleurisy. Pericarditis. Esophageal spasm. Pancreatis. Cholecystitis. Orders placed to evaluate differential diagnosis based on the above differential, HPI and physical exam EKG: Time 2:51 AM. Rate 84. Normal sinus rhythm, no ST elevation or depression. There are some Q waves. No ectopy, normal ND & QRS intervals, This was reviewed and interpreted by myself the ER physician at 2:55 AM Lab Review: Laboratory results were reviewed and interpreted by myself the emergency room physician. No leukocytosis. No anemia. Serial troponins are negative. Patient care transitioned to Dr. Ramey at shift change awaiting final read of the CTA of the chest for PE rule out. Lab Data 10/01/24 03:12 10/01/24 03:12 Radiology Impressions Chest X-Ray 10/01/24 02:55 IMPRESSION: No acute findings. Chest CTA 10/01/24 04:29 IMPRESSION: Cardiomegaly. Mild pulmonary vascular congestion/edema Laboratory Results WBC 8.09 10^3/uL (3.29-11.43) 10/01/24 03:12 RBC 4.45 10^6/uL (3.85-5.65) 10/01/24 03:12 Hgb 13.50 g/dL (11.27-16.99) 10/01/24 03:12 Hct 40.1 % (37-53) 10/01/24 03:12 MCV 90.1 fl (82-101) 10/01/24 03:12 MCH 30.3 pg (27-33) 10/01/24 03:12 MCHC 33.7 g/dL (30-55) 10/01/24 03:12 RDW 13.2 % (12.1-15.1) 10/01/24 03:12 Plt Count 229 10^3/cmm (157-399) 10/01/24 03:12 MPV 8.8 fL (7.4-10.4) 10/01/24 03:12 Neut % (Auto) 79.7 % 10/01/24 03:12 Lymph % (Auto) 8.9 % 10/01/24 03:12 Hopkins % (Auto) 9.1 % 10/01/24 03:12 Eos % (Auto) 1.7 % 10/01/24 03:12 Baso % (Auto) 0.2 % 10/01/24 03:12 Neut # (Auto) 6.44 10^3/uL (1.8-7.7) 10/01/24 03:12 Lymph # (Auto) 0.7 10^3/uL (0.8-4.8) L 10/01/24 03:12 Hopkins # (Auto) 0.7 10^3/uL (0.2-0.9) 10/01/24 03:12 Eos # (Auto) 0.1 10^3/uL (0.0-0.8) 10/01/24 03:12 Baso # (Auto) 0.0 10^3/uL (0.0-0.1) 10/01/24 03:12 Nucleated RBC % (auto) 0 % 10/01/24 03:12 Nucleated RBCs # 0.0 /100WBC 10/01/24 03:12 Sodium 142 mmol/L (136-145) 10/01/24 03:12 Potassium 3.9 mmol/L (3.5-5.1) 10/01/24 03:12 Chloride 103 mmol/L (98-107) 10/01/24 03:12 Carbon Dioxide 26 mmol/L (22-29) 10/01/24 03:12 Anion Gap 16.9 (5-19) 10/01/24 03:12 BUN 22 mg/dL (8-23) 10/01/24 03:12 Creatinine 1.0 mg/dL (0.7-1.2) 10/01/24 03:12 GFR Calculation 75.2 mL/min (90-130) L 10/01/24 03:12 Glucose 172 mg/dL (65-115) H 10/01/24 03:12 Calculated Osmolality 301 mOsm/kg (285-295) H 10/01/24 03:12 Lactic Acid 1.7 mmol/L (0.5-2.2) 10/01/24 03:12 Calcium 9.0 mg/dL (8.5-10.5) 10/01/24 03:12 Total Bilirubin 0.2 mg/dL (0.15-1.2) 10/01/24 03:12 AST 21 U/L (0-40) 10/01/24 03:12 ALT 30 U/L (0-41) 10/01/24 03:12 Alkaline Phosphatase 131 U/L (40-130) H 10/01/24 03:12 Troponin T Baseline 9 ng/L (0-15) 10/01/24 03:12 Troponin T 120 Minute 8.44 ng/L (0-15) 10/01/24 05:10 Delta Troponin T -0.56 ABS# (0-10) L 10/01/24 05:10 NT-Pro-B Natriuret Pep < 36 pg/mL (0-125) 10/01/24 03:12 Total Protein 6.4 g/dL (6.6-8.7) L 10/01/24 03:12 Albumin 4.1 g/dL (3.5-5.2) 10/01/24 03:12 Globulin 2.3 g/dL (1.3-4.6) 10/01/24 03:12 Discharge Plan Discharge Patient Disposition: Home Clinical Impression: Pneumonia, Pleuritic chest pain Condition: Stable Prescriptions: New levofloxacin 750 mg tablet 750 mg PO DAILY 7 Days Qty: 7 0RF No Action fluorouracil 5 % cream topical triamcinolone acetonide 0.1 % cream 1 applic topical BID Qty: 15 0RF cyclobenzaprine 10 mg tablet PO tadalafil 5 mg tablet PO pravastatin 40 mg tablet 40 mg PO DAILY 90 Days Qty: 90 3RF lisinopril-hydrochlorothiazide 20-25 mg tablet 1 tab PO DAILY 90 Days Qty: 90 3RF permethrin 5 % cream 1 applic topical Q14D Qty: 60 0RF Rx Instructions: -apply after shower, leave on 8-10 hours or overnight, rinse, may repeat in 1 week pantoprazole 40 mg tablet,delayed release (DR/EC) 40 mg PO DAILY 90 Days Qty: 90 3RF allopurinol 300 mg tablet 300 mg .ROUTE DAILY Qty: 30 3RF Rx Instructions: 300 mg daily; Venclexta 100 mg tablet See Rx Instructions .ROUTE .COMPLEX Qty: 60 0RF Dose Instruction: TAKE TWO TABLETS BY MOUTH DAILY Rx Instructions: TAKE TWO TABLETS BY MOUTH DAILY Discharge Orders: Discharge ED (Routine); Ordered 10/01/24 Ordered By: Marcel Ramey Referrals: Marisabel Arredondo FNP-C [Primary Care Provider] - Discharge Diet: Usual diet Discharge Activity: Increase activity as tolerated Patient Instructions: Opioid Safety, Pain Management Activity Restrictions/Additional Instructions: Thank you for choosing [facility] for your healthcare needs today. It is very important that you follow up as instructed or that you return to the Emergency Department should you have concerns or if your condition changes or worsens in any way. You are seen in the emergency room with complaints of chest discomfort with deep inspiration. Your cardiac enzymes are negative and your EKG was normal. Chest x-ray there is a subtle question about right lower lobe infiltrate. On the CTA of your chest there is some vascular congestion which based on your history suspect is likely infectious. There is no sign of acute coronary syndrome based on the evaluation done in the emergency room. Recommend you start on Levaquin 750 mg once a day for 7 days. Follow-up with your primary care doctor for improvement Coding Level of Care Code ED Monument Setter Helper for Chg Fwd Documented by User: Marcel Ramey DO 10/01/24 07:15 HPI - Chest Pain General: Chief Complaint: Chest Pain Stated Complaint: Chest Pains Time Seen by Provider: 10/01/24 02:50 Related Data Home Medications Medication Instructions Recorded Confirmed cyclobenzaprine 10 mg tablet mg PO 11/27/23 09/23/24 fluorouracil 5 % topical cream applic topical 05/21/24 09/23/24 tadalafil 5 mg tablet mg PO 08/26/24 09/23/24 Previous Rx's Medication Instructions Recorded pravastatin 40 mg tablet 40 mg PO DAILY 90 days #90 tabs 03/01/23 lisinopril 20 1 tab PO DAILY 90 days #90 tabs 02/12/24 mg-hydrochlorothiazide 25 mg tablet triamcinolone acetonide 0.1 % 1 applic topical BID #15 grams 02/23/24 topical cream permethrin 5 % topical cream 1 applic topical Q14D 2 doses #60 03/06/24 grams pantoprazole 40 mg tablet,delayed 40 mg PO DAILY 90 days #90 tabs 07/03/24 release allopurinol 300 mg tablet 300 mg .Route DAILY #30 tabs 07/10/24 venetoclax 100 mg tablet See Rx Instructions .Route 09/05/24 (Venclexta) .COMPLEX #60 tabs levofloxacin 750 mg tablet 750 mg PO DAILY 7 days #7 tabs 10/01/24 Allergies Allergy/AdvReac Type Severity Reaction Status Date / Time Penicillins Allergy Unknown Verified 10/01/24 02:56 PFSH ED PFSH: Medical History Chronic lymphocytic leukemia History of colonic polyps Gout of left foot Gastric reflux Mixed hyperlipidemia Essential (primary) hypertension Surgical History Status post surgical removal of malignant neoplasm of skin History of lumbar laminectomy (11/16/23) History of lymph node biopsy (08/28/17) Left inguinal lymph node biopsy Status post cecostomy Laparoscopic partial cecectomy 06/06/2018 Family History Other Hypertension Denies family history of Bleeding disorder Social History Smoking and tobacco/nicotine status: unknown if used tobacco/nicotine Second hand smoke exposure: No Alcohol intake: never Substance/Drug Use: never Adopted: No Caregiver/support person: No Lives independently: Yes Household members: spouse Housing: House Marital status: Current occupational status: employed 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 unstable angina. angina. Acute coronary syndrome / GA. Pulmonary embolism. Costochondritis / musculoskeletal. Pleurisy. Pericarditis. Esophageal spasm. Pancreatis. Cholecystitis. Orders placed to evaluate differential diagnosis based on the above differential, HPI and physical exam EKG: Time 2:51 AM. Rate 84. Normal sinus rhythm, no ST elevation or depression. There are some Q waves. No ectopy, normal ND & QRS intervals, This was reviewed and interpreted by myself the ER physician at 2:55 AM Lab Review: Laboratory results were reviewed and interpreted by myself the emergency room physician. No leukocytosis. No anemia. Serial troponins are negative. Patient care transitioned to Dr. Ramey at shift change awaiting final read of the CTA of the chest for PE rule out. Care assumed at change of shift. Cardiac enzymes negative. EKG does not show any acute changes second EKG shows a first-degree AV block but otherwise no ST elevation. Patient has reproducible pain with deep inspiration. Chest x-ray suspect there may be a little right lower lobe infiltrate was read as negative. On the CT of a of the chest there is no PE but there are areas of increased congestion based on his history suspect these are likely infectious in nature. Patient states has had symptoms persistently for nearly 3 weeks. Will start him on Levaquin 750 mg once daily and have him follow-up with his primary care doctor if not improving Medical Records I reviewed the patient's medical records. Lab Data I reviewed the patient's lab results. 10/01/24 03:12 10/01/24 03:12 Radiology Impressions Chest X-Ray 10/01/24 02:55 IMPRESSION: No acute findings. Chest CTA 10/01/24 04:29 IMPRESSION: Cardiomegaly. Mild pulmonary vascular congestion/edema Laboratory Results WBC 8.09 10^3/uL (3.29-11.43) 10/01/24 03:12 RBC 4.45 10^6/uL (3.85-5.65) 10/01/24 03:12 Hgb 13.50 g/dL (11.27-16.99) 10/01/24 03:12 Hct 40.1 % (37-53) 10/01/24 03:12 MCV 90.1 fl (82-101) 10/01/24 03:12 MCH 30.3 pg (27-33) 10/01/24 03:12 MCHC 33.7 g/dL (30-55) 10/01/24 03:12 RDW 13.2 % (12.1-15.1) 10/01/24 03:12 Plt Count 229 10^3/cmm (157-399) 10/01/24 03:12 MPV 8.8 fL (7.4-10.4) 10/01/24 03:12 Neut % (Auto) 79.7 % 10/01/24 03:12 Lymph % (Auto) 8.9 % 10/01/24 03:12 Hopkins % (Auto) 9.1 % 10/01/24 03:12 Eos % (Auto) 1.7 % 10/01/24 03:12 Baso % (Auto) 0.2 % 10/01/24 03:12 Neut # (Auto) 6.44 10^3/uL (1.8-7.7) 10/01/24 03:12 Lymph # (Auto) 0.7 10^3/uL (0.8-4.8) L 10/01/24 03:12 Hopkins # (Auto) 0.7 10^3/uL (0.2-0.9) 10/01/24 03:12 Eos # (Auto) 0.1 10^3/uL (0.0-0.8) 10/01/24 03:12 Baso # (Auto) 0.0 10^3/uL (0.0-0.1) 10/01/24 03:12 Nucleated RBC % (auto) 0 % 10/01/24 03:12 Nucleated RBCs # 0.0 /100WBC 10/01/24 03:12 Sodium 142 mmol/L (136-145) 10/01/24 03:12 Potassium 3.9 mmol/L (3.5-5.1) 10/01/24 03:12 Chloride 103 mmol/L (98-107) 10/01/24 03:12 Carbon Dioxide 26 mmol/L (22-29) 10/01/24 03:12 Anion Gap 16.9 (5-19) 10/01/24 03:12 BUN 22 mg/dL (8-23) 10/01/24 03:12 Creatinine 1.0 mg/dL (0.7-1.2) 10/01/24 03:12 GFR Calculation 75.2 mL/min (90-130) L 10/01/24 03:12 Glucose 172 mg/dL (65-115) H 10/01/24 03:12 Calculated Osmolality 301 mOsm/kg (285-295) H 10/01/24 03:12 Lactic Acid 1.7 mmol/L (0.5-2.2) 10/01/24 03:12 Calcium 9.0 mg/dL (8.5-10.5) 10/01/24 03:12 Total Bilirubin 0.2 mg/dL (0.15-1.2) 10/01/24 03:12 AST 21 U/L (0-40) 10/01/24 03:12 ALT 30 U/L (0-41) 10/01/24 03:12 Alkaline Phosphatase 131 U/L (40-130) H 10/01/24 03:12 Troponin T Baseline 9 ng/L (0-15) 10/01/24 03:12 Troponin T 120 Minute 8.44 ng/L (0-15) 10/01/24 05:10 Delta Troponin T -0.56 ABS# (0-10) L 10/01/24 05:10 NT-Pro-B Natriuret Pep < 36 pg/mL (0-125) 10/01/24 03:12 Total Protein 6.4 g/dL (6.6-8.7) L 10/01/24 03:12 Albumin 4.1 g/dL (3.5-5.2) 10/01/24 03:12 Globulin 2.3 g/dL (1.3-4.6) 10/01/24 03:12 All radiology interpretation(s) finalized by discharge Discharge Plan Discharge Patient Disposition: Home Clinical Impression: Pneumonia, Pleuritic chest pain Condition: Stable Prescriptions: New levofloxacin 750 mg tablet 750 mg PO DAILY 7 Days Qty: 7 0RF No Action fluorouracil 5 % cream topical triamcinolone acetonide 0.1 % cream 1 applic topical BID Qty: 15 0RF cyclobenzaprine 10 mg tablet PO tadalafil 5 mg tablet PO pravastatin 40 mg tablet 40 mg PO DAILY 90 Days Qty: 90 3RF lisinopril-hydrochlorothiazide 20-25 mg tablet 1 tab PO DAILY 90 Days Qty: 90 3RF permethrin 5 % cream 1 applic topical Q14D Qty: 60 0RF Rx Instructions: -apply after shower, leave on 8-10 hours or overnight, rinse, may repeat in 1 week pantoprazole 40 mg tablet,delayed release (DR/EC) 40 mg PO DAILY 90 Days Qty: 90 3RF allopurinol 300 mg tablet 300 mg .ROUTE DAILY Qty: 30 3RF Rx Instructions: 300 mg daily; Venclexta 100 mg tablet See Rx Instructions .ROUTE .COMPLEX Qty: 60 0RF Dose Instruction: TAKE TWO TABLETS BY MOUTH DAILY Rx Instructions: TAKE TWO TABLETS BY MOUTH DAILY Discharge Orders: Discharge ED (Routine); Ordered 10/01/24 Ordered By: Marcel Ramey Referrals: Marisabel Arredondo FNP-C [Primary Care Provider] - Discharge Diet: Usual diet Discharge Activity: Increase activity as tolerated Patient Instructions: Opioid Safety, Pain Management Activity Restrictions/Additional Instructions: Thank you for choosing [facility] for your healthcare needs today. It is very important that you follow up as instructed or that you return to the Emergency Department should you have concerns or if your condition changes or worsens in any way. You are seen in the emergency room with complaints of chest discomfort with deep inspiration. Your cardiac enzymes are negative and your EKG was normal. Chest x-ray there is a subtle question about right lower lobe infiltrate. On the CTA of your chest there is some vascular congestion which based on your history suspect is likely infectious. There is no sign of acute coronary syndrome based on the evaluation done in the emergency room. Recommend you start on Levaquin 750 mg once a day for 7 days. Follow-up with your primary care doctor for improvement Coding Level of Care Code ED Monument Setter Helper for Joseline Nance
[2024-10-01 03:19] LABS: Basophils % 0.2 %; Eosinophils # 0.1 10^3/uL (0.0-0.8); Eosinophils % 1.7 %; Hematocrit 40.1 % (37-53); Lymphocytes # 0.7 10^3/uL (0.8-4.8); Lymphocytes % 8.9 %; Mean Corpuscular HGB Conc 33.7 g/dL (30-55); Mean Corpuscular Hemoglobin 30.3 pg (27-33); Mean Corpuscular Volume 90.1 fl (82-101); Mean Platelet Volume 8.8 fL (7.4-10.4); Monocytes # 0.7 10^3/uL (0.2-0.9); Monocytes % 9.1 %; Neutrophils # 6.44 10^3/uL (1.8-7.7); Neutrophils % 79.7 %; Nucleated Red Blood Cells % 0 %; Platelet Count 229 10^3/cmm (157-399); Red Blood Count 4.45 10^6/uL (3.85-5.65); Red Cell Distribution Width 13.2 % (12.1-15.1); White Blood Count 8.09 10^3/uL (3.29-11.43)
[2024-10-01 03:35] LABS: Lactic Sepsis W/Reflex 1.7 mmol/L (0.5-2.2)
[2024-10-01 03:40] LABS: Troponin(5th) Baseline 9 ng/L (0-15)
[2024-10-01 03:50] LABS: Alanine Aminotransferase 30 U/L (0-41); Albumin Level 4.1 g/dL (3.5-5.2); Alkaline Phosphatase 131 U/L (40-130); Aspartate Amino Transferase 21 U/L (0-40); Blood Urea Nitrogen 22 mg/dL (8-23); Carbon Dioxide 26 mmol/L (22-29); Chloride 103 mmol/L (98-107); Creatinine Clr Calc Pharmacy 83.5793; Globulin 2.3 g/dL (1.3-4.6); Glomerular Filtration Rate 75.2 mL/min (90-130); Glucose 172 mg/dL (65-115); NT Pro B Type Natriuretic Pept < 36 pg/mL (0-125); Osmolality Calculated 301 mOsm/kg (285-295); Sodium 142 mmol/L (136-145); Total Bilirubin 0.2 mg/dL (0.15-1.2); Total Protein 6.4 g/dL (6.6-8.7)
[2024-10-01 03:54] LABS: Anion Gap 16.9 (5-19); Potassium 3.9 mmol/L (3.5-5.1)
--- NOTE | 2024-10-01 04:29 | CTR_ITS ---
PROCEDURE INFORMATION: Exam: CTA Chest With Contrast Exam date and time: 10/01/2024 4:52 AM Age: 64 years old Clinical indication: Pain; Chest pressure; Additional info: Chest pain TECHNIQUE: Imaging protocol: Computed tomographic angiography of the chest with contrast. Exam focused on the arteries. 3D rendering (Not supervised by radiologist): MIP and/or 3D reconstructed images were created by the technologist. Radiation optimization: All CT scans at this facility use at least one of these dose optimization techniques: automated exposure control; mA and/or kV adjustment per patient size (includes targeted exams where dose is matched to clinical indication); or iterative reconstruction. Contrast material: OMNI 350; Contrast volume: 75 ml; Contrast route: INTRAVENOUS (IV); COMPARISON: PT PET skull to thigh SUBS [id number] 09/06/2024 2:09 PM RADIATION DOSE METRICS: Total DLP (mGy-cm): 425.56 FINDINGS: Pulmonary arteries: Normal. No pulmonary emboli. Aorta: Unremarkable. No aortic aneurysm. No aortic dissection. Lungs: Ground-glass opacities throughout both lung gorman suggestive of edema. Pleural spaces: Unremarkable. No pneumothorax. No pleural effusion. Heart: Cardiomegaly. Lymph nodes: Unremarkable. No enlarged lymph nodes. Bones/joints: Unremarkable. No acute fracture. Soft tissues: Unremarkable. CT/CT angio chest PE protcl [id number] IMPRESSION: Cardiomegaly. Mild pulmonary vascular congestion/edema
--- NOTE | 2024-10-01 04:55 | ECG_ITS ---
[facility] Date: 2024-10-01 Pat Name: Italo Barrios Department: Room: Gender: Male Crowning Inspector: : 1960 Requested By: Linda Ann Order Number: [id number] Brenda MD: Lee Rehman M.D. Measurements Intervals [place] Rate: 77 P: 51 ME: 220 QRS: 56 QRSD: 107 T: 1 QT: 350 QTc: 396 Interpretive Statements SINUS RHYTHM WITH FIRST DEGREE AV BLOCK Compared to ECG 10/01/2024 02:51:58 Myocardial infarct finding no longer present Electronically Signed On 10-01-2024 21:22:50 BIOMASS PRODUCTION MANAGER by Lee Rehman M.D. [email or web address]
[2024-10-01] MEDS: iohexol 350 mg/mL 500 mL Btl (per mL) IV (05:05)
[2024-10-01 05:34] LABS: Troponin 5 2HR 8.44 ng/L (0-15); Troponin 5 2HR Delta -0.56 ABS# (0-10)
== END 2024-10-01 07:41 | disposition home or self-care (01) ==
PROVIDERS: Emergency Medicine; Emergency Provider Family Medicine; PCP Nurse Practitioner Family
DX: J18.9 Pneumonia, unspecified organism (principal); R07.89 Other chest pain; E78.2 Mixed hyperlipidemia; I10 Essential (primary) hypertension
CPT/HCPCS: 36415; 71045; 71275; 80053; 83605; 83880; 84484; 85025; 93005; 99285

== ENCOUNTER → 2024-11-04 10:24 | Outpatient (BNVA) | payer BC, SELFPAY | PROVIDERS: PCP Nurse Practitioner Family; Visit Provider Internal Medicine Medical Oncology | DX: C91.10 Chronic lymphocytic leukemia of B-cell type not having achieved remission (principal) | CPT/HCPCS: 80053; 85025 ==

== ENCOUNTER → 2024-11-25 10:18 | Outpatient (BNVA) | payer BC, SELFPAY | PROVIDERS: PCP Nurse Practitioner Family; Visit Provider Internal Medicine Medical Oncology | DX: C91.10 Chronic lymphocytic leukemia of B-cell type not having achieved remission (principal) | CPT/HCPCS: 80053; 85025 ==

== ENCOUNTER 2024-12-23 08:10 | Oncology outpatient (recurring) (ONCR) | payer BC, SELFPAY | END 2024-12-23 23:59 | disposition home or self-care (01) | PROVIDERS: PCP Nurse Practitioner Family; Visit Provider Internal Medicine Medical Oncology | DX: Z53.9 Procedure and treatment not carried out, unspecified reason (principal) ==

== ENCOUNTER → 2025-03-21 09:23 | Outpatient (BNVA) | payer BC, SELFPAY | PROVIDERS: PCP Nurse Practitioner Family; Visit Provider Internal Medicine Medical Oncology | DX: C91.10 Chronic lymphocytic leukemia of B-cell type not having achieved remission (principal) | CPT/HCPCS: 80053; 85025 ==

== ENCOUNTER 2025-03-24 09:09 | Oncology outpatient (recurring) (ONCR) | payer BC, SELFPAY | END 2025-03-24 23:59 | disposition home or self-care (01) | PROVIDERS: PCP Nurse Practitioner Family; Visit Provider Internal Medicine Medical Oncology | DX: Z53.9 Procedure and treatment not carried out, unspecified reason (principal) ==

== ENCOUNTER → 2025-04-28 09:24 | Outpatient (BNVA) | payer BC, SELFPAY | PROVIDERS: PCP Nurse Practitioner Family; Visit Provider Nurse Practitioner Family | DX: C91.10 Chronic lymphocytic leukemia of B-cell type not having achieved remission (principal) | CPT/HCPCS: 80053; 82784; 85025 ==

== ENCOUNTER → 2025-05-27 09:22 | Outpatient (BNVA) | payer BC, SELFPAY | PROVIDERS: PCP Nurse Practitioner Family; Visit Provider Nurse Practitioner Family | DX: C91.10 Chronic lymphocytic leukemia of B-cell type not having achieved remission (principal) | CPT/HCPCS: 80053; 85025 ==

== ENCOUNTER 2025-06-24 11:07 | Oncology outpatient (recurring) (ONCR) | payer BC, SELFPAY ==
--- NOTE | 2025-06-24 12:00 | CTR_ITS ---
PROCEDURE INFORMATION: Exam: CT Neck With Contrast Exam date and time: 06/24/2025 12:21 PM Age: 64 years old Clinical indication: Condition or disease; Other: Cll; Additional info: Check if disease resolved TECHNIQUE: Imaging protocol: Computed tomography of the neck with contrast. Radiation optimization: All CT scans at this facility use at least one of these dose optimization techniques: automated exposure control; mA and/or kV adjustment per patient size (includes targeted exams where dose is matched to clinical indication); or iterative reconstruction. Contrast material: OMNI 350; Contrast volume: 75 ml; Contrast route: INTRAVENOUS (IV); COMPARISON: PT PET skull to thigh SUBS [id number] 09/06/2024 2:09 PM RADIATION DOSE METRICS: Total DLP (mGy-cm): 202.34 FINDINGS: Paranasal sinuses: Mucous retention cyst right maxillary antrum. Salivary glands: Normal. Glands are normal in size. Pharynx: Unremarkable. No significant tonsillar enlargement. Larynx: Unremarkable. Epiglottis is normal. Thyroid: Normal. No enlarged or calcified nodules. Trachea: Visualized trachea is unremarkable. Lungs: Patchy ground-glass pulmonary opacities. Lymph nodes: Unremarkable. No lymphadenopathy. Bones/joints: Unremarkable. No acute fracture. Soft tissues: Unremarkable. No significant soft tissue swelling. CT/CT neck w con* [id number] IMPRESSION: Normal CT soft tissue neck.
--- NOTE | 2025-06-24 12:00 | CTR_ITS ---
PROCEDURE INFORMATION: Exam: CT Chest With Contrast; Diagnostic Exam date and time: 06/24/2025 12:16 PM Age: 64 years old Clinical indication: Condition or disease; Other: Cll; Additional info: Check if disease resolved TECHNIQUE: Imaging protocol: Diagnostic computed tomography of the chest with contrast. Radiation optimization: All CT scans at this facility use at least one of these dose optimization techniques: automated exposure control; mA and/or kV adjustment per patient size (includes targeted exams where dose is matched to clinical indication); or iterative reconstruction. Contrast material: OMNI 350; Contrast volume: 75 ml; Contrast route: INTRAVENOUS (IV); COMPARISON: CT angio chest PE protcl [id number] 10/01/2024 4:52 AM RADIATION DOSE METRICS: Total DLP (mGy-cm): 1080.61 FINDINGS: Lungs: Mild basilar atelectasis. No consolidation. Pleural spaces: No pneumothorax or pleural effusion. Heart: No cardiomegaly. No pericardial effusion. Coronary arteries: Moderate atherosclerotic calcification of the coronary arteries. Lymph nodes: No pathologically enlarged lymph nodes demonstrated. Vasculature: No central pulmonary emboli seen. No aneurysm or dissection in the visualized aorta. The visualized aorta and vasculature demonstrates mild atherosclerotic calcification. Bones/joints: The thoracic spine demonstrates mild degenerative changes at multiple levels. There is no acute osseous abnormality. Soft tissues: Unremarkable. PROCEDURE INFORMATION: Exam: CT Abdomen And Pelvis With Contrast Exam date and time: 06/24/2025 12:16 PM Age: 64 years old Clinical indication: Condition or disease; Other: Cll; Additional info: Check if disease resolved TECHNIQUE: Imaging protocol: Computed tomography of the abdomen and pelvis with contrast. Radiation optimization: All CT scans at this facility use at least one of these dose optimization techniques: automated exposure control; mA and/or kV adjustment per patient size (includes targeted exams where dose is matched to clinical indication); or iterative reconstruction. Contrast material: OMNI 350; Contrast volume: 75 ml; Contrast route: INTRAVENOUS (IV); COMPARISON: PT PET skull to thigh SUBS [id number] 09/06/2024 2:09 PM RADIATION DOSE METRICS: Total DLP (mGy-cm): 1080.61 FINDINGS: Liver: There is a decrease in hepatic parenchymal density, consistent with fatty infiltration. Gallbladder and biliary ducts: No mineralized gallstones or biliary ductal dilatation. Pancreas: The pancreas appears unremarkable. Spleen: The spleen appears unremarkable. Adrenal glands: The adrenal glands are unremarkable. Kidneys and ureters: The kidneys appear unremarkable. No mineralized stones or hydronephrosis. Stomach and bowel: Moderate colonic diverticulosis. No evidence of acute diverticulitis at this time. There is no evidence of intestinal perforation or obstruction. 9 mm rounded filling defect in the body of the stomach, indeterminate for a small polyp. Appendix: There has been prior appendectomy. Intraperitoneal space: Similar mild nonspecific haziness in the root of the mesentery. No free air. Vasculature: No aneurysm or dissection in the visualized aorta. The visualized aorta and vasculature demonstrates mild atherosclerotic calcification. Lymph nodes: No pathologically enlarged lymph nodes demonstrated. Urinary bladder: The bladder appears unremarkable. Reproductive: Visualized portions of the male reproductive tract are unremarkable, though routine CT is limited in this regard. Bones/joints: Moderate disc space narrowing at L4/L5. There is no acute osseous abnormality. Soft tissues: Small fat containing left inguinal hernia. CT/CT chest abdpel w/*[id number] IMPRESSION: No lymphadenopathy or CT evidence of acute abnormality in the chest. IMPRESSION: 1. No lymphadenopathy or CT evidence of acute abnormality in the abdomen/pelvis. 2. Hepatic steatosis. 3. Moderate colonic diverticulosis. No evidence of acute diverticulitis at this time. 4. 9 mm rounded filling defect in the body of the stomach, indeterminate for a small polyp. If clinically warranted, follow-up endoscopy could be obtained to further evaluate.
[2025-06-24] MEDS: iohexol 350 mg/mL 500 mL Btl (per mL) IV ×2 (12:25→12:26)
[2025-06-24] MEDS: iohexol 350 mg/mL 500 mL Btl (per mL) PO (12:26)
== END 2025-06-24 23:59 | disposition home or self-care (01) ==
LOC: ONCMED 11:10
PROVIDERS: PCP Nurse Practitioner Family; Visit Provider Internal Medicine Medical Oncology
DX: C91.10 Chronic lymphocytic leukemia of B-cell type not having achieved remission (principal); M27.40 Unspecified cyst of jaw; R91.8 Other nonspecific abnormal finding of lung field; K76.0 Fatty (change of) liver, not elsewhere classified; K57.30 Diverticulosis of large intestine without perforation or abscess without bleeding; R93.3 Abnormal findings on diagnostic imaging of other parts of digestive tract; R93.89 Abnormal findings on diagnostic imaging of other specified body structures; I70.0 Atherosclerosis of aorta; M51.369 Other intervertebral disc degeneration, lumbar region without mention of lumbar back pain or lower extremity pain; K40.90 Unilateral inguinal hernia, without obstruction or gangrene, not specified as recurrent; Z98.890 Other specified postprocedural states
CPT/HCPCS: 70491; 71260; 74177

== ENCOUNTER 2025-06-30 07:51 | Oncology outpatient (recurring) (ONCR) | payer BC, SELFPAY ==
[2025-06-30 08:08] LABS: Hematocrit 40.0 % (37-53); Hemoglobin 13.40 g/dL (11.27-16.99); Mean Corpuscular HGB Conc 33.5 g/dL (30-55); Mean Corpuscular Hemoglobin 30.2 pg (27-33); Mean Corpuscular Volume 90.1 fl (82-101); Nucleated Red Blood Cells % 0 %; Platelet Count 201 10^3/cmm (157-399); Red Blood Count 4.44 10^6/uL (3.85-5.65); White Blood Count 4.39 10^3/uL (3.29-11.43)
[2025-06-30 08:27] LABS: Alanine Aminotransferase 23 U/L (0-41); Albumin Level 4.5 g/dL (3.5-5.2); Alkaline Phosphatase 115 U/L (40-130); Anion Gap 16.4 (5-19); Aspartate Amino Transferase 22 U/L (0-40); Blood Urea Nitrogen 23 mg/dL (8-23); Calcium 8.9 mg/dL (8.5-10.5); Carbon Dioxide 25 mmol/L (22-29); Chloride 103 mmol/L (98-107); Creatinine Clr Calc Pharmacy 77.0256; Globulin 2.5 g/dL (1.3-4.6); Glucose 137 mg/dL (65-115); Osmolality Calculated 296 mOsm/kg (285-295); Potassium 4.4 mmol/L (3.5-5.1); Sodium 140 mmol/L (136-145); Total Protein 7.0 g/dL (6.6-8.7)
== END 2025-07-25 23:59 | disposition home or self-care (01) ==
LOC: ONCMED 07:51
PROVIDERS: PCP Nurse Practitioner Family; Visit Provider Internal Medicine Medical Oncology
DX: C91.10 Chronic lymphocytic leukemia of B-cell type not having achieved remission (principal)
CPT/HCPCS: 36415; 80053; 85025

== ENCOUNTER 2025-08-05 07:59 | Day surgery (SDC) | payer BC, SELFPAY ==
[2025-08-05 08:15] VITALS: BP 143/98; PULSE 74; RESP 18; TEMP 35.9; O2SAT 93; BMI 28.1
--- NOTE | 2025-08-05 08:21 | ANES.PREANE2 ---
Pre-Anesthetic Assessment Height/Weight: Height 1.78 m Operation Date: 08/05/25 09:30 Proposed Procedures p EGD EGD with Biopsy 44163 K31.7(Not Applicable) - Branden Stephens MD Was Beta Darryl taken within 24 hours: N/A Was Clonidine taken within 24 hours: N/A Social No alcohol and No tobacco Exam alert, oriented x 3, clear to auscultation bilaterally and regular rate & rhythm Airway Submandibular: within normal limits Cervical ROM: within normal limits Mallampati: Class II Dentition: chipped History/ROS No significant history except as noted Pulmonary Cough CV/HEM Hypertension (lisinopril) None reported Hepatic None reported GI Gastroesophageal Reflux Disease Metabolic Hyperlipidemia Musc/skel Lower Back Pain (L4-5 sx) Neuropsych Neuropathy (L>R) Anesthetic Plan ASA status: 2 Anesthesia: MAC Risk of > 500 ml blood loss (7ml/kg in children): No Medications/Allergies Home Medications ?Medication ?Instructions ?Recorded ?Confirmed ?Last Taken ?Type pantoprazole 40 mg tablet,delayed 40 mg PO DAILY 90 days #90 tabs 07/03/24 07/31/25 08/04/25 Rx release sildenafil 50 mg tablet 50 - 100 mg PO PRN PRN sexxual 10/01/24 08/05/25 1 Week Ago History activity ~07/29/25 lisinopril 20 1 tab PO DAILY 90 days #90 tabs 04/15/25 07/31/25 08/04/25 Rx mg-hydrochlorothiazide 25 mg tablet allopurinol 100 mg tablet 100 mg PO DAILY #90 tabs 06/05/25 07/31/25 08/04/25 Rx pravastatin 1 tab PO DAILY 07/31/25 07/31/25 08/04/25 History Allergies Allergy/AdvReac Type Severity Reaction Status Date / Time Penicillins Allergy Unknown Verified 07/31/25 12:35 [facility] Anesthesia Medical History (Updated 07/04/25 @ 09:59 by Branden Stephens MD) Chronic lymphocytic leukemia History of colonic polyps Gout of left foot Gastric reflux Mixed hyperlipidemia Essential (primary) hypertension Surgical History (Updated 06/30/25 @ 08:12 by Bernabe Chavez) Status post surgical removal of malignant neoplasm of skin History of lumbar laminectomy (11/16/23) History of lymph node biopsy (08/28/17) Left inguinal lymph node biopsy Status post cecostomy Laparoscopic partial cecectomy 06/06/2018 Family History Other Hypertension Denies family history of Bleeding disorder Social History Smoking and tobacco/nicotine status: never used tobacco/nicotine Second hand smoke exposure: No Alcohol intake: never Substance/Drug Use: never Adopted: No Caregiver/support person: No Lives independently: Yes Household members: spouse Housing: House Marital status: Current occupational status: employed 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
--- NOTE | 2025-08-05 08:32 | P.ANESASSM_ITS ---
Pre-Anesthetic Assessment Height/Weight: Height 1.78 m Weight 88.904 kg Temp Pulse Resp BP Pulse Ox O2 Del Method 96.7 F L 74 18 143/98 93 Room Air 08/05/25 08:15 08/05/25 08:15 08/05/25 08:15 08/05/25 08:15 08/05/25 08:15 08/05/25 08:15 Operation Date: 08/05/25 09:30 Proposed Procedures p EGD EGD with Biopsy 30713 K31.7(Not Applicable) - Branden Stephens MD Last intake: Intake Last Liquid Date 08/04/25 Last Liquid Time 20:30 Last Solid Date 08/04/25 Last Solid Time 20:30 Medications/Allergies Home Medications ?Medication ?Instructions ?Recorded ?Confirmed ?Last Taken ?Type pantoprazole 40 mg tablet,delayed 40 mg PO DAILY 90 da ys #90 tabs 07/03/24 07/31/25 08/04/25 Rx release sildenafil 50 mg tablet 50 - 100 mg PO PRN PRN sexxu al 10/01/24 08/05/25 1 Week Ago History activity ~07/29/25 lisinopril 20 1 tab PO DAILY 90 days #90 t abs 04/15/25 07/31/25 08/04/25 Rx mg-hydrochlorothiazide 25 mg tablet allopurinol 100 mg tablet 100 mg PO DAILY #90 tabs 08/1907/31/25 08/04/25 Rx pravastatin 1 tab PO DAILY 07/31/2503/1908/04/25 History Allergies Allergy/AdvReac Type Severity Reaction Status Date / Time Penicillins Allergy Unknown Verified 07/31/25 12:35 [facility] Anesthesia Medical History (Updated 07/04/25 @ 09:59 by Branden Stephens MD) Chronic lymphocytic leukemia History of colonic polyps Gout of left foot Gastric reflux Mixed hyperlipidemia Essential (primary) hypertension Surgical History (Updated 06/30/25 @ 08:12 by Bernabe Chavez) Status post surgical removal of malignant neoplasm of skin History of lumbar laminectomy (11/16/23) History of lymph node biopsy (08/28/17) Left inguinal lymph node biopsy Status post cecostomy Laparoscopic partial cecectomy 06/06/2018 Family History Other Hypertension Denies family history of Bleeding disorder Social History Smoking and tobacco/nicotine status: never used tobacco/nicotine Second hand smoke exposure: No Alcohol intake: never Substance/Drug Use: never Adopted: No Caregiver/support person: No Lives independently: Yes Household members: spouse Housing: House Marital status: Current occupational status: employed 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
--- NOTE | 2025-08-05 08:36 | W.PM.OPSFHP ---
Same Day Surgery H&P Indication for Procedure/HPI DATE OF PROCEDURE: August 05, 2025 CHIEF COMPLAINT/INDICATIONFOR SURGICAL PROCEDURE: gastric polyp PREOP DIAGNOSIS: gastric polyp PLANNED PROCEDURE: Operation Date: 08/05/25 09:30 Proposed Procedures p EGD EGD with Biopsy 96228 K31.7(Not Applicable) - Branden Stephens MD Medications/Allergies* Home Medications ?Medication ?Instructions ?Recorded ?Confirmed ?Type sildenafil 50 mg tablet 50 - 100 mg PO PRN PRN sexxual 10/01/24 08/05/25 History activity pravastatin 1 tab PO DAILY 07/31/25 07/31/25 History Allergies/Adverse Reactions Allergy/AdvReac Type Severity Reaction Status Date / Time Penicillins Allergy Unknown Verified 07/31/25 12:35 Pertinent History/Comorbid Conditions* Medical History (Updated 07/04/25 @ 09:59 by Branden Stephens MD) Chronic lymphocytic leukemia History of colonic polyps Gout of left foot Gastric reflux Mixed hyperlipidemia Essential (primary) hypertension Surgical History (Updated 02/20/24 @ 18:40 by Babatunde Gonzalez MD) Status post surgical removal of malignant neoplasm of skin History of lumbar laminectomy (11/16/23) History of lymph node biopsy (08/28/17) Left inguinal lymph node biopsy Status post cecostomy Laparoscopic partial cecectomy 06/06/2018 Family History (Updated 02/10/20 @ 16:18 by Ines Mcarthur MA) Hypertension Denies family history of Bleeding disorder Social History Smoking and tobacco/nicotine status: never used tobacco/nicotine Second hand smoke exposure: No Alcohol intake: never Substance/Drug Use: never Adopted: No Caregiver/support person: No Lives independently: Yes Household members: spouse Housing: House Marital status: Current occupational status: employed 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 Heart: Regular rate and rhythm. Abdomen: Soft, nontender, nondistended. Recommendations Risks and benefits of procedure reviewed and Patient/family agree to proceed Surgery/Procedure today Other Plans: I have explained the risks and benefits of a diagnostic EGD with biopsy and the patient agrees to proceed. Coding Level of Care Code Acute Code for Chg Fwd
[2025-08-05 09:15] VITALS: BP 108/70; PULSE 79; RESP 16; TEMP 36.3; O2SAT 92
[2025-08-05 09:36] VITALS: BP 108/69; PULSE 71; RESP 16; O2SAT 91
--- NOTE | 2025-08-05 10:00 | ANE.PACU2 ---
Inpatient post-anesthesia follow up: Airway intact: Yes Vital signs: Temperature 97.4 F Pulse Rate 71 Respiratory Rate 16 Blood Pressure 108/69 Pulse Oximetry 91 Oxygen Delivery Me thod Room Air Oxygen Flow Rate Fraction of Inspir ed Oxygen Hydration adequate: Yes Nausea and vomiting: No Pain level: 1 Mental status: Baseline
== END 2025-08-05 10:04 | disposition home or self-care (01) ==
PROVIDERS: PCP Nurse Practitioner Family; Visit Provider Student in an Organized Health Care Education/Training Program
PROC: 0DJ08ZZ Inspection of Upper Intestinal Tract, Via Natural or Artificial Opening Endoscopic (ICD-10-PCS; principal; 2025-08-05 09:30)
DX: K31.7 Polyp of stomach and duodenum (principal); K44.9 Diaphragmatic hernia without obstruction or gangrene; K29.70 Gastritis, unspecified, without bleeding; K29.80 Duodenitis without bleeding; Z85.6 Personal history of leukemia; Z86.0100 Personal history of colon polyps, unspecified; E78.2 Mixed hyperlipidemia; I10 Essential (primary) hypertension; K21.9 Gastro-esophageal reflux disease without esophagitis
CPT/HCPCS: 43239; 43251; 88305; J2704; J7030